=== PATIENT | female | born 1985 | race African-American/Black ===

== ENCOUNTER 2016-11-27 17:11 | Emergency (ER) | payer OTHER ==
[2016-11-27 17:25] VITALS: BP 125/82
--- NOTE | 2016-11-27 17:40 | UC ---
Skin Complaint HPI - HPI Summary HPI Summary: She noticed the area four days ago as a small pimple/gifford on her upper, inner thigh. She applied warm compresses and pressed it, with some relief. The area became more swollen and hot. It is painful to sit. She denies any fevers. - History of Current Complaint Chief Complaint: UCSkin Time Seen by Provider: 11/27/16 17:28 Stated Complaint: ABCESS Hx Obtained From: Patient Hx Last Menstrual Period: march 13 Onset/Duration: Gradual Onset, Lasting Days Onset Severity: Mild Current Severity: Moderate Aggravating: Touch Alleviating: Other - Warm compresses Associated Signs & Symptoms: Positive: Tenderness. Negative: Fever, Chills, Cough Related History: Other: - Pimple - Allergy/Home Medications Allergies/Adverse Reactions: Allergies Allergy/AdvReac Type Severity Reaction Status Date / Time Penicillins Allergy Intermediate Hives Verified 04/20/16 08:56 Home Medications: Home Medications Biotin 1 mg PO 11/27/16 [History] Black Seed Oil 1 cap 11/27/16 [History] Cecy Root [Femmenessence Macaharmony] 500 mg PO 11/27/16 [History] Review of Systems Constitutional: Negative Skin: Other - Tender, firm area in upper, inner thigh Eyes: Negative ENT: Negative Respiratory: Negative Cardiovascular: Negative Gastrointestinal: Negative Genitourinary: Negative Motor: Negative Neurovascular: Negative Musculoskeletal: Negative Neurological: Negative Psychological: Negative All Other Systems Reviewed And Are Negative: Yes PMH/Surg Hx/FS Hx/Imm Hx Previously Healthy: Yes Endocrine History Of: Denies: Diabetes, Thyroid Disease Cardiovascular History Of: Denies: Cardiac Disorders, Hypertension, Pacemaker/ICD Respiratory History Of: Reports: Asthma Denies: COPD GI/ History Of: Denies: Ulcer, Renal Disease Psychological History Of: Reports: Anxiety, Depression - frequent crying Other History Of: Anticoagulant Therapy - usp use - Surgical History Surgical History: Yes Surgery Procedure, Year, and Place: - 2006 - Family History Known Family History: Positive: None Negative: Respiratory Disease Family History: R & n/C - Social History Alcohol Use: Weekly Alcohol Amount: On weekends Substance Use Type: None Smoking Status (MU): Current Some Day Smoker When Did the Patient Quit Smoking/Using Tobacco: " a long time ago" Physical Exam Triage Information Reviewed: Yes Appearance: Well-Appearing, No Pain Distress, Well-Nourished Vital Signs: Initial Vital Signs Temp 98.3 F 11/27/16 17:21 Pulse 109 11/27/16 17:21 Resp 18 11/27/16 17:21 BP 125/82 11/27/16 17:21 Pulse Ox 97 11/27/16 17:21 Vital Signs Reviewed: Yes Eye Exam: Normal Eyes: Positive: Conjunctiva Clear ENT Exam: Normal ENT: Positive: Normal ENT inspection, Pharynx normal, TMs normal. Negative: Tonsillar swelling, Tonsillar exudate Neck exam: Normal Neck: Positive: Supple, Nontender, No Lymphadenopathy Respiratory Exam: Normal Respiratory: Positive: Chest non-tender, Lungs clear, Normal breath sounds, No respiratory distress, No accessory muscle use Cardiovascular Exam: Normal Cardiovascular: Positive: RRR, No Murmur Musculoskeletal Exam: Normal Musculoskeletal: Positive: Strength Intact Neurological Exam: Normal Neurological: Positive: Alert, Muscle Tone Normal Psychological Exam: Normal Skin Exam: Other Skin: Positive: significant lesion(s) - Firm 0.5 inch round abscess in upper, inner left thigh. Tender to palpation and warm to touch. Course/Dx - Course Course Of Treatment: Abscess was incised and drained. We will prescribe her an antibiotic. She is to see her primary care provider on Tuesday to check her INR. She is to use warm compresses to encourage drainage and dress the area loosely if needed. - Differential Diagnoses - Skin Complaint Differential Diagnoses: Abscess, Cellulitis, Contact Dermatitis - Diagnoses Provider Diagnoses: L thigh abscess incision and drainage Procedures - Incision and Drainage Site: L upper thigh Anesthesia: Local - 2mL 2% Instrument(s): Scalpel - mod pus return Packing: Other - none Discharge - Discharge Plan Condition: Stable Disposition: HOME Prescriptions: DOXYcycline CAP(*) [DOXYcycline 100MG CAP(*)] 100 mg PO BID #10 cap Patient Education Materials: Abscess (ED) Print Language: PASHTO Referrals: Lazara Nugent MD [Primary Care Provider] - Additional Instructions: This is most likely an abscess. We would like you to take the antibiotic for its full course. Continue to use warm compresses or soaks in the bath. We want this to continue to drain so please use a loose dressing if needed. If it does not improve in the next couple of days, or symptoms worsen, please come back to be seen. See your primary care provider to re-check your INR on Tuesday.
[2016-11-27] MEDS ORDERED: Lidocaine 2% PF * 5 ML VIAL ONE (17:41)
== END 2016-11-27 18:18 | disposition home or self-care (01) ==
LOC: UCEAST 17:11
DX: L02.416 Cutaneous abscess of left lower limb (principal); Z88.0 Allergy status to penicillin; Z72.0 Tobacco use
CPT/HCPCS: 10060; 87070; 87077; 87186; 87205; 87640; 87641; 99212; G0463

== ENCOUNTER 2017-02-01 09:39 | Emergency (ER) | payer OTHER ==
[2017-02-01 11:28] LABS: Hematocrit 40 % (35-47); Hemoglobin 12.8 g/dl (12.0-16.0); Mean Corpuscular HGB Conc 32 g/dl (31-36); Mean Corpuscular Hemoglobin 28 pg (27-31); Mean Corpuscular Volume 86 fL (80-97); Mean Platelet Volume 8 um3 (7.4-10.4); Red Blood Count 4.61 10^6/ul (4.0-5.4); Red Cell Distribution Width 14 % (10.5-15); White Blood Count 5.4 10^3/ul (3.5-10.8)
[2017-02-01 11:42] LABS: Urine Bilirubin Negative (Negative); Urine Glucose Negative (Negative); Urine Nitrite Negative (Negative)
[2017-02-01 11:44] LABS: ALT 13 U/L (7-52); AST 19 U/L (13-39); Albumin 4.1 g/dL (3.2-5.2); Alkaline Phosphatase 57 U/L (34-104); Anion Gap 5 mmol/L (2-11); BUN/Creatinine Ratio 14.1 (8-20); Blood Urea Nitrogen 9 mg/dL (6-24); C Reactive Protein 1.86 mg/L (< 5.00); CO2 Carbon Dioxide 29 mmol/L (22-32); Calcium 9.3 mg/dL (8.6-10.3); Chloride 103 mmol/L (101-111); EGFR African American 141.1 (>60); EGFR Non-African American 109.7 (>60); Glucose 89 mg/dL (70-100); Indirect Bilirubin 0.3 mg/dL (0.3-1.0); Lipase 15 U/L (11.0-82.0); Potassium 3.9 mmol/L (3.5-5.0); Sodium 137 mmol/L (133-145); Total Protein 7.1 g/dL (6.4-8.9)
--- NOTE | 2017-02-01 12:51 | RAD ---
INDICATION: Back and left lower quadrant abdominal pain. COMPARISON: Comparison is made with a prior CT of the abdomen and pelvis from April 18, 2009. TECHNIQUE: A CT scan of the abdomen and pelvis was performed without intravenous or oral contrast. Contiguous axial sections were obtained from the lung bases through the symphysis pubis. Images were reconstructed in the coronal and sagittal planes. FINDINGS: The lung bases are clear. No pleural effusion is present. The liver and spleen are within normal limits in size without significant focal abnormality on this noncontrast study. No calcified gallstones are seen. The pancreas appears to be within normal limits in size. No ureteral or bladder calculi are seen. The adrenal glands and kidneys are normal in size. No renal calculi or hydronephrosis is seen. The aorta is normal in caliber without significant calcific plaque. No significant enlarged retroperitoneal lymph nodes are seen. The stomach, small and large bowel appear nondistended. The appendix is within normal limits. There are scattered diverticuli within the colon. There is no evidence for diverticulitis or colitis. The uterus is mildly enlarged and anteverted in position. No free intraperitoneal air or fluid is seen. No significant focal osseous abnormality is seen. IMPRESSION: NO EVIDENCE FOR ACUTE FINDING OR CAUSE FOR THE PATIENT'S ABDOMINAL PAIN IS SEEN.
[2017-02-01 13:28] VITALS: BP 102/47
--- NOTE | 2017-02-01 16:43 | ED ---
Abdominal Pain/Female - HPI Summary HPI Summary: PATIENT PRESENTS WITH L SIDED ABDOMINAL PAIN X 4 DAYS. THE PAIN IS INTERMITTENT , DULL AND ACHY IN NATURE AND RADIATES TO THE LEFT FLANK. DENIES CONSTIPATION OR DIARRHEA. ENDORSES N/V WITH 1 X EPISODE OR VOMITING. DENIES JUNE, NECK PAIN, CHEST PAIN OR PRESSURE OR SOB. SHE DENIES RECENT ILLNESS. SURGICAL HISTORY INCLUDES . - History of Current Complaint Chief Complaint: EDAbdPain Stated Complaint: LT SIDE FLANK PAIN/NAUSEA Time Seen by Provider: 02/01/17 09:52 Hx Last Menstrual Period: march 13 Pain Intensity: 0 Pain Scale Used: 0-10 Numeric Allergies/Adverse Reactions: Allergies Allergy/AdvReac Type Severity Reaction Status Date / Time Penicillins Allergy Intermediate Hives Verified 02/01/17 11:02 PMH/Surg Hx/FS Hx/Imm Hx Endocrine/Hematology History: Reports: Hx Anticoagulant Therapy - care home use Denies: Hx Diabetes, Hx Thyroid Disease Cardiovascular History: Reports: Other Cardiovascular Problems/Disorders - HEART MURMUR Denies: Hx Hypertension, Hx Pacemaker/ICD Respiratory History: Reports: Hx Asthma, Other Respiratory Problems/Disorders - allergic rhinitis, smoker Denies: Hx Chronic Obstructive Pulmonary Disease (COPD) GI History: Denies: Hx Ulcer History: Denies: Hx Renal Disease Musculoskeletal History: Reports: Other Musculoskeletal History - 2006 (left) leg DVT Sensory History: Reports: Hx Hearing Problem - (left) ear Denies: Hx Hearing Aid Neurological History: Reports: 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 Psychiatric History: Reports: Hx Anxiety, Hx Depression - frequent crying, Hx Panic Disorder - PANIC ATTACKS-ANXIETY, Other Psychiatric Issues/Disorders - ETOH hx (3 mixed drinks per day) - Cancer History Cancer Type, Location and Year: blood clots - Surgical History Surgery Procedure, Year, and Place: - 2006 - Immunization History Date of Tetanus Vaccine: unk Infectious Disease History: No Infectious Disease History: Denies: Hx Clostridium Difficile, Hx Hepatitis, Hx Human Immunodeficiency Virus (HIV), Hx of Known/Suspected MRSA, Hx Shingles, Hx Tuberculosis, Traveled Outside the [place] in Last 30 Days - Family History Known Family History: Positive: None Negative: Respiratory Disease Family History: R & n/C - Social History Alcohol Use: Weekly Alcohol Amount: On weekends Hx Substance Use: No Substance Use Type: Reports: None Hx Tobacco Use: Yes Smoking Status (MU): Current Some Day Smoker Physical Exam Vital Signs On Initial Exam: Initial Vitals Temp Pulse Resp BP Pulse Ox 97.8 F 79 17 105/65 100 02/01/17 09:41 02/01/17 09:41 02/01/17 09:41 02/01/17 09:41 02/01/17 09:41 - [place] Coma Scale Coma Scale Total: 15 Diagnostics - Vital Signs Vital Signs Temp Pulse Resp BP Pulse Ox 02/01/17 13:27 97.7 F 66 18 102/47 02/01/17 12:37 98 F 68 17 100/48 100 02/01/17 10:42 98.5 F 61 16 113/41 98 02/01/17 09:41 97.8 F 79 17 105/65 100 - Laboratory Lab Results: Lab Results 02/01/17 02/01/17 02/01/17 Range/Units 10:50 11:10 11:10 WBC 5.4 (3.5-10.8) 10^3/ul RBC 4.61 (4.0-5.4) 10^6/ul Hgb 12.8 (12.0-16.0) g/dl Hct 40 (35-47) % MCV 86 (80-97) fL MCH 28 (27-31) pg MCHC 32 (31-36) g/dl RDW 14 (10.5-15) % Plt Count 315 (150-450) 10^3/ul MPV 8 (7.4-10.4) um3 Neut % (Auto) 60.5 (38-83) % Lymph % (Auto) 29.2 (25-47) % [place] % (Auto) 8.0 (1-9) % Eos % (Auto) 1.9 (0-6) % Baso % (Auto) 0.4 (0-2) % Absolute Neuts (auto) 3.3 (1.5-7.7) 10^3/ul Absolute Lymphs (auto) 1.6 (1.0-4.8) 10^3/ul Absolute Monos (auto) 0.4 (0-0.8) 10^3/ul Absolute Eos (auto) 0.1 (0-0.6) 10^3/ul Absolute Basos (auto) 0 (0-0.2) 10^3/ul Absolute Nucleated RBC 0 10^3/ul Nucleated RBC % 0 Sodium 137 (133-145) mmol/L Potassium 3.9 (3.5-5.0) mmol/L Chloride 103 (101-111) mmol/L Carbon Dioxide 29 (22-32) mmol/L Anion Gap 5 (2-11) mmol/L BUN 9 (6-24) mg/dL Creatinine 0.64 (0.51-0.95) mg/dL Est GFR ( Amer) 141.1 (>60) Est GFR (Non-Af Amer) 109.7 (>60) BUN/Creatinine Ratio 14.1 (8-20) Glucose 89 (70-100) mg/dL Calcium 9.3 (8.6-10.3) mg/dL Total Bilirubin 0.40 (0.2-1.0) mg/dL Direct Bilirubin 0.10 (0.03-0.18) mg/dL Indirect Bilirubin 0.3 (0.3-1.0) mg/dL AST 19 (13-39) U/L ALT 13 (7-52) U/L Alkaline Phosphatase 57 (34-104) U/L C-Reactive Protein 1.86 (< 5.00) mg/L Total Protein 7.1 (6.4-8.9) g/dL Albumin 4.1 (3.2-5.2) g/dL Globulin 3.0 (2-4) g/dL Albumin/Globulin Ratio 1.4 (1-3) Lipase 15 (11.0-82.0) U/L Beta HCG, Quant < 0.60 mIU/mL Urine Color Yellow Urine Appearance Clear Urine pH 8.0 (5-9) Ur Specific [place] 1.018 (1.010-1.030) Urine Protein Negative (Negative) Urine Ketones Negative (Negative) Urine Blood Negative (Negative) Urine Nitrate Negative (Negative) Urine Bilirubin Negative (Negative) Urine Urobilinogen Negative (Negative) Ur Leukocyte Esterase Negative (Negative) Urine Glucose Negative (Negative) Result Diagrams: 02/01/17 11:10 02/01/17 11:10 Lab Statement: Any lab studies that have been ordered have been reviewed, and results considered in the medical decision making process. Discharge - Discharge Plan Condition: Stable Disposition: HOME Patient Education Materials: Acute Abdominal Pain (ED) Referrals: Lazara Nugent MD [Primary Care Provider] - Additional Instructions: FOLLOW UP WITH PCP NOTHING FOUND ON CT ABD/PELVIS PLEASE FOLLOW UP FOR US OF THE ABDOMEN YOUR PCP SCHEDULED. MOTRIN FOR DISCOMFORT
[2017-02-01 20:13] LABS: Cholesterol 167 mg/dL; HDL Cholesterol 67.3 mg/dL; LDL Cholesterol 85 mg/dL; Triglycerides 75 mg/dL
[2017-02-01 20:21] LABS: TSH (Thyroid Stimulating Horm) 0.92 mcIU/mL (0.34-5.60)
[2017-02-03 16:28] LABS: DHEA Sulfate 261 mcg/dL (44-332)
== END 2017-02-01 13:27 | disposition home or self-care (01) ==
LOC: ED 09:39
DX: R10.84 Generalized abdominal pain (principal); Z72.0 Tobacco use
CPT/HCPCS: 36415; 74176; 80053; 80061; 81003; 82248; 82533; 82626; 82627; 82652; 83690; 84403; 84443; 84702; 85025; 86140; 99282

== ENCOUNTER 2017-04-08 10:40 | Emergency (ER) | payer OTHER ==
--- NOTE | 2017-04-08 11:26 | ED ---
Shortness of Breath - HPI Summary HPI Summary: 31 female presents with complaints of having an episode of SOB and chest tightness/pressure that lasted ~5-10 minutes. Patient feel light headed at this time as well. Symptoms have improved since. States she was late to work due to her taxi and then when she got to work experienced this episode. States she also had a bout of nausea but no vomiting. Denies cough, SOB, difficulty breathing, chest pain and fever/chills at this time. Denies diaphoresis. PMHx is significant for multiple blood clots which she is concerned for over the past 10 years, 1 in lung, 1 in calf and 1 in brain. Denies any other PMHx no medication use. States laying down made the SOB worse. No recent bed rest or travel. Does not take OCP any longer. Cigarette use 1-2 times a month. Denied numbness tingling. - History of Current Complaint Chief Complaint: EDShortnessOfBreath Time Seen by Provider: 04/08/17 10:54 Hx Obtained From: Patient Onset/Duration: Sudden Onset, Lasting Minutes Timing: Constant Current Severity: Mild Dyspnea At: Rest Aggrevating Factors: Recumbent Position Alleviating Factors: Upright Position, Spontaneous Resolution Associated Signs & Symptoms: Negative - Risk Factors Pulmonary Embolism: Previous PE - Allergy/Home Medications Allergies/Adverse Reactions: Allergies Allergy/AdvReac Type Severity Reaction Status Date / Time Penicillins Allergy Intermediate Hives Verified 02/01/17 11:02 PMH/Surg Hx/FS Hx/Imm Hx Endocrine/Hematology History: Reports: 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 Denies: Hx Diabetes, Hx Thyroid Disease Cardiovascular History: Reports: Hx Deep Vein Thrombosis, Hx Embolism, Other Cardiovascular Problems/Disorders - HEART MURMUR Denies: Hx Hypertension, Hx Pacemaker/ICD Respiratory History: Reports: Hx Asthma, Other Respiratory Problems/Disorders - allergic rhinitis, smoker Denies: Hx Chronic Obstructive Pulmonary Disease (COPD) GI History: Denies: Hx Ulcer History: Denies: Hx Renal Disease Musculoskeletal History: Reports: Other Musculoskeletal History - 2006 (left) leg DVT Sensory History: Reports: Hx Hearing Problem - (left) ear Denies: Hx Hearing Aid Neurological History: Reports: Other Neuro Impairments/Disorders - 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 Psychiatric History: Reports: Hx Anxiety, Hx Depression - frequent crying, Hx Panic Disorder - PANIC ATTACKS-ANXIETY, Other Psychiatric Issues/Disorders - ETOH hx (3 mixed drinks per day) - Cancer History Cancer Type, Location and Year: blood clots - Surgical History Surgery Procedure, Year, and Place: - 2006 - Immunization History Date of Tetanus Vaccine: UTD Date of Influenza Vaccine: NO Immunizations Up to Date: Yes Infectious Disease History: No Infectious Disease History: Denies: Hx Clostridium Difficile, Hx Hepatitis, Hx Human Immunodeficiency Virus (HIV), Hx of Known/Suspected MRSA, Hx Shingles, Hx Tuberculosis, Traveled Outside the [place] in Last 30 Days - Family History Known Family History: Positive: Diabetes, Other - epilepsy Negative: Respiratory Disease Family History: R & n/C - Social History Alcohol Use: Weekly Alcohol Amount: On weekends Hx Substance Use: No Substance Use Type: Reports: None Hx Tobacco Use: Yes Smoking Status (MU): Current Some Day Smoker Review of Systems Constitutional: Negative Cardiovascular: Negative Positive: Shortness Of Breath - chest tightness/ pressure Gastrointestinal: Negative Musculoskeletal: Negative Skin: Negative Neurological: Negative All Other Systems Reviewed And Are Negative: Yes Physical Exam Triage Information Reviewed: Yes Vital Signs On Initial Exam: Initial Vitals Temp Pulse Resp BP Pulse Ox 97.1 F 57 16 121/78 98 04/08/17 10:56 04/08/17 10:56 04/08/17 10:56 04/08/17 10:56 04/08/17 10:56 Vital Signs Reviewed: Yes Appearance: Positive: Well-Appearing, No Pain Distress, Well-Nourished - laying comfortably in strecher Skin: Positive: Warm, Skin Color Reflects Adequate Perfusion - <2 sec cap refill b/l, Dry. Negative: Cold, Numb, Cyanosis @, Diaphoretic, Pale Eyes: Positive: Normal, Conjunctiva Clear ENT: Positive: Normal ENT inspection, Hearing grossly normal, Pharynx normal, TMs normal. Negative: Trismus, Muffled/hoarse voice Dental: Negative: Cervical Lymphadenopathy Neck: Positive: Supple, Nontender, No Lymphadenopathy Respiratory/Lung Sounds: Positive: Clear to Auscultation, Breath Sounds Present. Negative: Rales, Rhonchi, Wheezes Cardiovascular: Positive: Normal, RRR, Pulses are Symmetrical in both Upper and Lower Extremities, Murmur - chronic. Negative: Rub, Leg Edema Left, Leg Edema Right Abdomen Description: Positive: Nontender, No Organomegaly, Soft Bowel Sounds: Positive: Present Musculoskeletal: Positive: Normal, Strength/ROM Intact Neurological: Positive: Normal, Sensory/Motor Intact, Alert, Oriented to Person Place, Time, CN Intact II-III Psychiatric: Positive: Affect/Mood Appropriate - [place] Coma Scale Best Eye Response: 4 - Spontaneous Best Motor Response: 6 - Obeys Commands Best Verbal Response: 5 - Oriented Coma Scale Total: 15 Diagnostics - Vital Signs Vital Signs Temp Pulse Resp BP Pulse Ox 04/08/17 10:56 97.1 F 57 16 121/78 98 - Laboratory Result Diagrams: 04/08/17 11:53 04/08/17 11:53 Lab Statement: Any lab studies that have been ordered have been reviewed, and results considered in the medical decision making process. - Radiology chest Xray Interpretation: No Acute Changes - NO ACTIVE DISEASE. Radiology Interpretation Completed By: Radiologist - EKG EKG Cardiac Rate: NL EKG Rhythm: Sinus Rhythm ST Segment: Normal EKG Interpretation: NSR EKG Comparison: No Significant Change Course/Dx - Course Course Of Treatment: not in an pain at this time and denies SOB. labs and chest x-ray/eKG ordered. All unremarkable. D Dimer negative. Appears patient may have suffered a panic attack. Symptoms resolved spontaneously and normal labs. Will be d/c. No concern for other serious/emergent etiology such as PE, pneumonia or ACS due to PE findings, HPI and vitals. Patient was feeling better and wanted to be d/c home. Aware of worsening signs and symptoms to watch out for. Return if persist or recur. Follow up PCP. - Diagnoses Differential Diagnosis/HQI/PQRI: Positive: Asthma, Bronchitis, [place], Pneumonia, Pneumothorax, Pulmonary Embolism, Other - URI, anxiety, panic attack Provider Diagnoses: SOB (shortness of breath), Anxiety Discharge - Discharge Plan Condition: Stable Disposition: HOME Patient Education Materials: Dyspnea (ED), Anxiety (GEN), Panic Attack (GEN) Referrals: Lazara Nugent MD [Primary Care Provider] - Additional Instructions: Rest and drink plenty of fluids. If symptoms return or worsen please seek medical attention promptly. Follow up with PCP.
[2017-04-08 12:08] LABS: UR Preg Internal Control QC Line Present; Urine Bilirubin Negative (Negative); Urine Glucose Negative (Negative); Urine Nitrite Negative (Negative)
[2017-04-08 12:09] LABS: Hematocrit 38 % (35-47); Hemoglobin 12.2 g/dl (12.0-16.0); Mean Corpuscular HGB Conc 32 g/dl (31-36); Mean Corpuscular Hemoglobin 29 pg (27-31); Mean Corpuscular Volume 89 fL (80-97); Mean Platelet Volume 9 um3 (7.4-10.4); Red Blood Count 4.29 10^6/ul (4.0-5.4); Red Cell Distribution Width 14 % (10.5-15); White Blood Count 4.9 10^3/ul (3.5-10.8)
[2017-04-08 12:09] LABS: Manual Entry Verification JEA0012
[2017-04-08 12:26] LABS: Albumin 3.8 g/dL (3.2-5.2); BUN/Creatinine Ratio 14.8 (8-20); Calcium 9.2 mg/dL (8.6-10.3); EGFR African American 171.7 (>60); EGFR Non-African American 133.5 (>60); Globulin 2.8 g/dL (2-4); Potassium 3.8 mmol/L (3.5-5.0); Total Bilirubin 0.4 mg/dL (0.2-1.0); Total Protein 6.6 g/dL (6.4-8.9)
--- NOTE | 2017-04-08 12:47 | RAD ---
INDICATION: Short of breath. Chest pressure COMPARISON: September 13, 2016 TECHNIQUE: PA and lateral dual-energy views were obtained. FINDINGS: Bones/Soft Tissues: There are no acute bony findings. There is a mild scoliosis Cardiomediastinal: The cardiomediastinal silhouette is normal. Lungs: There are no infiltrates. Pleura: There are no pleural effusions. Other: None IMPRESSION: NO ACTIVE DISEASE.
[2017-04-08 12:58] LABS: T4 5.83 mcg/mL (6.09-12.23)
[2017-04-08 13:00] LABS: TSH (Thyroid Stimulating Horm) 0.8 mcIU/mL (0.34-5.60)
[2017-04-08 15:00] VITALS: BP 124/76
== END 2017-04-08 14:09 | disposition home or self-care (01) ==
LOC: ED 10:40
DX: R06.02 Shortness of breath (principal); Z72.0 Tobacco use; F41.9 Anxiety disorder, unspecified
CPT/HCPCS: 36415; 71020; 80053; 81003; 81025; 83605; 84436; 84443; 84484; 85025; 85379; 99283

== ENCOUNTER 2017-08-01 09:57 | Emergency (ER) | payer OTHER ==
--- NOTE | 2017-08-01 11:30 | ED ---
Throat Pain/Nasal Congestion - HPI Summary HPI Summary: 32 female presents to ED with complaints of dental pain x3 days. Patient states she fractured a tooth upper right a few months ago. Patient states pain is on right upper and lower side/mandible area. Denies fever/chills, discharge, obvious swelling, trouble breathing and difficulty swallowing. Does have pain with chewing. Admits to dental caries. No recent trauma or injury. No other complaints. Has been taking Aleve with relief only lasting a few hours. Does not have a dentist, but is working on getting one. Pain was keeping her up throughout the night. 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 , however not currently taking as of 08/01/17 Denies: Hx Diabetes, Hx Thyroid Disease Cardiovascular History: Reports: Hx Deep Vein Thrombosis, Hx Embolism, Other Cardiovascular Problems/Disorders - HEART MURMUR Denies: Hx Hypertension, Hx Pacemaker/ICD Respiratory History: Reports: Hx Asthma, Other Respiratory Problems/Disorders - allergic rhinitis, smoker Denies: Hx Chronic Obstructive Pulmonary Disease (COPD) GI History: Denies: Hx Ulcer History: Denies: Hx Renal Disease Musculoskeletal History: Reports: Other Musculoskeletal History - 2006 (left) leg DVT Sensory History: Reports: Hx Hearing Problem - (left) ear Denies: Hx Hearing Aid Neurological History: Reports: 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 Psychiatric History: Reports: Hx Anxiety, Hx Depression - frequent crying, Hx Panic Disorder - PANIC ATTACKS-ANXIETY, Other Psychiatric Issues/Disorders - ETOH hx (3 mixed drinks per day) - Cancer History Cancer Type, Location and Year: blood clots - Surgical History Surgery Procedure, Year, and Place: - 2006 - Immunization History Date of Tetanus Vaccine: UTD Date of Influenza Vaccine: NO Infectious Disease History: No Infectious Disease History: Denies: Hx Clostridium Difficile, Hx Hepatitis, Hx Human Immunodeficiency Virus (HIV), Hx of Known/Suspected MRSA, Hx Shingles, Hx Tuberculosis, Traveled Outside the [place] in Last 30 Days - Family History Known Family History: Positive: None, Diabetes, Other - epilepsy Negative: Respiratory Disease Family History: R & n/C - Social History Alcohol Use: Weekly Alcohol Amount: On weekends Hx Substance Use: No Substance Use Type: Reports: None Hx Tobacco Use: Yes Smoking Status (MU): Current Some Day Smoker Review of Systems Constitutional: Negative Positive: Dental Pain Cardiovascular: Negative Respiratory: Negative Gastrointestinal: Negative All Other Systems Reviewed And Are Negative: Yes Physical Exam Triage Information Reviewed: Yes Vital Signs On Initial Exam: Initial Vitals Temp Pulse Resp BP Pulse Ox 97.3 F 70 16 118/65 99 08/01/17 10:03 08/01/17 10:03 08/01/17 10:03 08/01/17 10:03 08/01/17 10:03 Vital Signs Reviewed: Yes Appearance: Positive: Well-Appearing, No Pain Distress, Well-Nourished Skin: Positive: Warm, Skin Color Reflects Adequate Perfusion, Dry. Negative: Cold, Numb, Cyanosis @, Pale, Erythema @ Head/Face: Positive: Normal Head/Face Inspection - no swelling noted Eyes: Positive: Normal ENT: Positive: Normal ENT inspection, Hearing grossly normal Dental: Positive: Gross Decay/Caries @, Dental Fracture @, Abscess @ - non palpable, Other - tender on palpation of left mandible area and left maxillary area. Negative: Percussion Tenderness @, Cervical Lymphadenopathy Neck: Positive: Supple, Nontender, No Lymphadenopathy - restricted due to excess adipose tissue Respiratory/Lung Sounds: Positive: Clear to Auscultation, Breath Sounds Present. Negative: Rales, Rhonchi, Wheezes Cardiovascular: Positive: Normal, RRR, Pulses are Symmetrical in both Upper and Lower Extremities. Negative: Murmur, Rub Musculoskeletal: Positive: Normal Neurological: Positive: Normal, Sensory/Motor Intact, Alert, Oriented to Person Place, Time Diagnostics - Vital Signs Vital Signs Temp Pulse Resp BP Pulse Ox 08/01/17 10:03 97.3 F 70 16 118/65 99 - Laboratory Lab Statement: Any lab studies that have been ordered have been reviewed, and results considered in the medical decision making process. EENT Course/Dx - Course Course Of Treatment: appears to be suffering from dental infection/abscess. no concerning other signs/symptoms. nomral PE other than dental fracture/caries. will treat with antibiotic, pain management, continue aleve. ice. good oral hygeine and follow up dentist. aware of worsening signs/symptoms. no concern for other emergent etiology at this time. - Differential Diagnoses Differential Diagnoses: Dental Abscess, Dental Caries, Fractured Tooth, Sinusitis - Diagnoses Provider Diagnoses: Dental infection, Pain, dental Discharge - Discharge Plan Condition: Stable Disposition: HOME Prescriptions: Clindamycin Cap(NF) [Clindamycin Cap 300 mg Cap(NF)] 300 mg PO QID #28 cap HYDROcodone/ACETAMIN 5-325 MG* [[place] 5-325 TAB*] 1 tab PO Q6H PRN #15 tab MDD 2 PRN Reason: Pain Patient Education Materials: Dental Abscess (ED), Toothache (ED) Referrals: Kalpana HONG,Jeffrey Viera [Doctor of Dental Medicine] - [facility] [Outside] Additional Instructions: Take prescribed medication as directed to help with pain and to fight infection. Highly recommend taking probiotic pill and/or eating latvian yogurt daily to replenish normal jonathon, in between antibiotic doses. Follow up with dentist, call to make an appointment. Ice swelling 20 minutes on and 20 minutes off. Drink plenty of fluids. Keep good oral hygiene. Any new or worsening symptoms please seek medical attention promptly, as discussed.
[2017-08-01 11:38] VITALS: BP 108/85
== END 2017-08-01 11:37 | disposition home or self-care (01) ==
LOC: ED 09:57
DX: K08.89 Other specified disorders of teeth and supporting structures (principal); K04.7 Periapical abscess without sinus; Z72.0 Tobacco use
CPT/HCPCS: 99282

== ENCOUNTER 2017-10-24 16:49 | Emergency (ER) | payer OTHER ==
[2017-10-24 18:46] LABS: ABS Basophils 0 10^3/ul (0-0.2); ABS Eosinophils 0.2 10^3/ul (0-0.6); ABS Lymphocytes 1.9 10^3/ul (1.0-4.8); ABS Monocytes 0.5 10^3/ul (0-0.8); ABS Neutrophils 3.8 10^3/ul (1.5-7.7); ABS Nucleated RBC 0 10^3/ul; Eosinophil % 2.7 % (0-6); Hematocrit 36 % (35-47); Lymphocyte % 30.4 % (25-47); Mean Corpuscular HGB Conc 33 g/dl (31-36); Mean Corpuscular Hemoglobin 29 pg (27-31); Mean Corpuscular Volume 87 fL (80-97); Mean Platelet Volume 8 um3 (7.4-10.4); Nucleated Red Blood Cells % 0; Platelet Count 292 10^3/ul (150-450); Red Blood Count 4.19 10^6/ul (4.0-5.4); Red Cell Distribution Width 14 % (10.5-15); White Blood Count 6.4 10^3/ul (3.5-10.8)
[2017-10-24 19:01] LABS: EGFR Non-African American 89.4 (>60)
--- NOTE | 2017-10-24 19:37 | ED ---
GI/ HPI - HPI Summary HPI Summary: 32-year-old female presents with left side abdominal pain for the past 4 days. She states the pain is mostly on her left side and sometimes radiates to her left flank and down to her left lower quadrant. She has never had this pain before. She denies a history of ovarian cysts. She denies any history of kidney stones. She denies any frequency urgency dysuria or hematuria. She states her pain is kind of intermittent. She denies any fever. She denies any nausea or vomiting or diarrhea. She denies any previous abdominal surgeries. Nothing makes it better or worse. Denies any chest pain or shortness breath. She is not on control. She does have a history of blood clot. She denies any recent vaginal discharge or STD. 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 as of 08/01/17 Denies: Hx Diabetes, Hx Thyroid Disease Cardiovascular History: Reports: Hx Deep Vein Thrombosis, Hx Embolism, Other Cardiovascular Problems/Disorders - HEART MURMUR Denies: Hx Hypertension, Hx Pacemaker/ICD Respiratory History: Reports: Hx Asthma, Other Respiratory Problems/Disorders - allergic rhinitis, smoker Denies: Hx Chronic Obstructive Pulmonary Disease (COPD) GI History: Denies: Hx Ulcer History: Denies: Hx Renal Disease Musculoskeletal History: Reports: Other Musculoskeletal History - 2006 (left) leg DVT Sensory History: Reports: Hx Hearing Problem - (left) ear Denies: Hx Hearing Aid Neurological History: Reports: 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 Psychiatric History: Reports: Hx Anxiety, Hx Depression - frequent crying, Hx Panic Disorder - PANIC ATTACKS-ANXIETY, Other Psychiatric Issues/Disorders - ETOH hx (3 mixed drinks per day) - Cancer History Cancer Type, Location and Year: blood clots - Surgical History Surgery Procedure, Year, and Place: - 2006 - Immunization History Date of Tetanus Vaccine: UTD Date of Influenza Vaccine: NO Infectious Disease History: No Infectious Disease History: Denies: Hx Clostridium Difficile, Hx Hepatitis, Hx Human Immunodeficiency Virus (HIV), Hx of Known/Suspected MRSA, Hx Shingles, Hx Tuberculosis, Traveled Outside the [place] in Last 30 Days - Family History Known Family History: Positive: None, Diabetes, Other - epilepsy Negative: Respiratory Disease Family History: R & n/C - Social History Alcohol Use: Weekly Alcohol Amount: On weekends Hx Substance Use: No Substance Use Type: Reports: None Hx Tobacco Use: Yes Smoking Status (MU): Current Some Day Smoker Review of Systems Negative: Fever Negative: Chest Pain Negative: Shortness Of Breath Positive: Abdominal Pain. Negative: Vomiting, Diarrhea, Nausea Positive: flank pain All Other Systems Reviewed And Are Negative: Yes Physical Exam Triage Information Reviewed: Yes Vital Signs On Initial Exam: Initial Vitals Temp Pulse Resp BP Pulse Ox 98.9 F 62 18 104/66 99 10/24/17 16:57 10/24/17 16:57 10/24/17 16:57 10/24/17 16:57 10/24/17 16:57 Vital Signs Reviewed: Yes Appearance: Positive: Well-Appearing Skin: Positive: Warm, Dry Head/Face: Positive: Normal Head/Face Inspection Eyes: Positive: Normal, Conjunctiva Clear Respiratory/Lung Sounds: Positive: Clear to Auscultation, Breath Sounds Present Cardiovascular: Positive: Normal, RRR Abdomen Description: Positive: Soft, Other: - tenderness in LLQ. Negative: CVA Tenderness (L) Bowel Sounds: Positive: Present Musculoskeletal: Positive: Normal Neurological: Positive: Normal Psychiatric: Positive: Normal Diagnostics - Vital Signs Vital Signs Temp Pulse Resp BP Pulse Ox 10/24/17 18:54 98.8 F 68 18 121/57 100 10/24/17 16:57 98.9 F 62 18 104/66 99 - Laboratory Lab Results: Lab Results 10/24/17 10/24/17 Range/Units 18:37 18:37 WBC 6.4 (3.5-10.8) 10^3/ul RBC 4.19 (4.0-5.4) 10^6/ul Hgb 12.0 (12.0-16.0) g/dl Hct 36 (35-47) % MCV 87 (80-97) fL MCH 29 (27-31) pg MCHC 33 (31-36) g/dl RDW 14 (10.5-15) % Plt Count 292 (150-450) 10^3/ul MPV 8 (7.4-10.4) um3 Neut % (Auto) 59.3 (38-83) % Lymph % (Auto) 30.4 (25-47) % [place] % (Auto) 7.1 (1-9) % Eos % (Auto) 2.7 (0-6) % Baso % (Auto) 0.5 (0-2) % Absolute Neuts (auto) 3.8 (1.5-7.7) 10^3/ul Absolute Lymphs (auto) 1.9 (1.0-4.8) 10^3/ul Absolute Monos (auto) 0.5 (0-0.8) 10^3/ul Absolute Eos (auto) 0.2 (0-0.6) 10^3/ul Absolute Basos (auto) 0 (0-0.2) 10^3/ul Absolute Nucleated RBC 0 10^3/ul Nucleated RBC % 0 Sodium 136 (133-145) mmol/L Potassium 3.6 (3.5-5.0) mmol/L Chloride 104 (101-111) mmol/L Carbon Dioxide 27 (22-32) mmol/L Anion Gap 5 (2-11) mmol/L BUN 15 (6-24) mg/dL Creatinine 0.76 (0.51-0.95) mg/dL Est GFR ( Amer) 114.9 (>60) Est GFR (Non-Af Amer) 89.4 (>60) BUN/Creatinine Ratio 19.7 (8-20) Glucose 88 (70-100) mg/dL Calcium 9.1 (8.6-10.3) mg/dL Total Bilirubin 0.20 (0.2-1.0) mg/dL AST 17 (13-39) U/L ALT 13 (7-52) U/L Alkaline Phosphatase 58 (34-104) U/L C-React Prot High Sens 1.93 mg/L Total Protein 6.8 (6.4-8.9) g/dL Albumin 3.9 (3.2-5.2) g/dL Globulin 2.9 (2-4) g/dL Albumin/Globulin Ratio 1.3 (1-3) Lipase 14 (11.0-82.0) U/L Beta HCG, Quant < 0.60 mIU/mL Result Diagrams: 10/24/17 18:37 10/24/17 18:37 Lab Statement: Any lab studies that have been ordered have been reviewed, and results considered in the medical decision making process. GIGU Course/Dx - Course Course Of Treatment: 32-year-old female presents with left side abdominal pain for the past 4 days. She states the pain is mostly on her left side and sometimes radiates to her left flank and down to her left lower quadrant. She has never had this pain before. She denies a history of ovarian cysts. She denies any history of kidney stones. She denies any frequency urgency dysuria or hematuria. She states her pain is kind of intermittent. She denies any fever. She denies any nausea or vomiting or diarrhea. She denies any previous abdominal surgeries. Nothing makes it better or worse. Denies any chest pain or shortness breath. She is not on control. She does have a history of blood clot. On exam tenderness greatest in left lower quadrant. Negative CVA tenderness. Lab White blood cell count normal. symptoms not conistent with kidney stone so will get transvaginal u/s. urine neg. u/s shows cyst. explained results to patient and patient remembered that had history of cyst. patient understand and agrees with plan. - Diagnoses Differential Diagnoses - Female: Ovarian Cyst, Urinary Tract Infection, Ureteral Calculi Provider Diagnoses: Abdominal pain, Ovarian cyst Discharge - Discharge Plan Condition: Good Disposition: HOME Patient Education Materials: Ovarian Cyst (ED) Referrals: No Primary Care Phys,NOPCP [Primary Care Provider] - Additional Instructions: Take Tylenol or ibuprofen every 6 hours for pain Follow up with obgyn Return to ED if develop any new or worsening symptoms
[2017-10-24 19:50] LABS: Urine Appearance Cloudy; Urine Blood Negative (Negative); Urine Color Yellow; Urine Ketones Negative (Negative); Urine Protein Negative (Negative); Urine Specific Gravity 1.023 (1.010-1.030); Urine Urobilinogen Negative (Negative)
--- NOTE | 2017-10-24 20:31 | RAD ---
HISTORY: Left lower quadrant pain COMPARISONS: March 03, 2017 TECHNIQUE: Multiple transverse and longitudinal ultrasound images were obtained of the pelvis using grayscale, color Doppler, and spectral Doppler imaging using the endovaginal transducer. FINDINGS: UTERUS: The uterus measures 8.8 x 4.1 x 4.7 cm. The uterus is normal in shape, size, contour, and echotexture. Cervical nabothian cysts are noted. ENDOMETRIUM: The endometrial stripe is smooth. The endometrium measures 0.7 cm in thickness. CUL-DE-SAC: There is no free fluid within the cul-de-sac. RIGHT OVARY: The right ovary measures 3.1 x 1.7 x 2.3 cm. Multiple follicles are noted. Normal arterial and venous waveforms are identifiable within the ovary on spectral Doppler imaging. LEFT OVARY: The left ovary measures 3.3 x 2.2 x 3 cm. Multiple follicles are noted, including a 2.3 cm simple cyst. Normal arterial and venous waveforms are identifiable within the ovary on spectral Doppler imaging. BLADDER: The bladder is not well visualized. OTHER: None IMPRESSION: 2.3 CM LEFT OVARIAN SIMPLE CYST. NO SONOGRAPHIC FEATURES OF TORSION. PLEASE NOTE THAT PARTIAL OR INTERMITTENT TORSION MAY BE SONOGRAPHICALLY NORMAL.
[2017-10-24 21:14] VITALS: BP 122/83
== END 2017-10-24 21:12 | disposition home or self-care (01) ==
LOC: ED 16:49
DX: N83.292 Other ovarian cyst, left side (principal); F17.200 Nicotine dependence, unspecified, uncomplicated; Z88.0 Allergy status to penicillin
CPT/HCPCS: 36415; 76830; 80053; 81003; 83690; 84702; 85025; 86141; 86703; 99282

== ENCOUNTER 2017-12-16 15:13 | Emergency (ER) | payer OTHER ==
[2017-12-16] MEDS ORDERED: Lidocaine 2% VISCOUS* 15 ML UDC SWISH SPIT ONE (16:06)
[2017-12-16] MEDS ORDERED: HYDROcodone/ACETAMIN 5-325 MG* 1 TAB PO ONE (16:11)
--- NOTE | 2017-12-16 16:25 | ED ---
Throat Pain/Nasal Congestion - HPI Summary HPI Summary: Pt here w/ gingival pain in areas of recent extractions (Rt upper and lower posterior teeth) - worse w/ hot/cold. Has foul taste in area at times. Not cleaning after eating despite a hole in lower gingiva and irritation of upper gingiva. Has been trying ibuprofen and acetaminophen w/ brief relief. Was switched to dolobid by dentist today. Denies fever, chills, n/v/d, trouble breathing or swallowing. Painful to eat but still drinking fluids. Was on clindamycin after surgery - completed and still has sx. - History of Current Complaint Chief Complaint: EDDentalPain Time Seen by Provider: 12/16/17 15:35 Hx Obtained From: Patient - Allergies/Home Medications Allergies/Adverse Reactions: Allergies Allergy/AdvReac Type Severity Reaction Status Date / Time Penicillins Allergy Hives Verified 12/16/17 15:28 PMH/Surg Hx/FS Hx/Imm Hx Previously Healthy: Yes Endocrine/Hematology History: Reports: Hx Anticoagulant Therapy - detention use , however not currently taking as of 08/01/17 Denies: Hx Diabetes, Hx Thyroid Disease Cardiovascular History: Reports: Hx Deep Vein Thrombosis, Hx Embolism, Other Cardiovascular Problems/Disorders - HEART MURMUR Denies: Hx Hypertension, Hx Pacemaker/ICD Respiratory History: Reports: Hx Asthma, Other Respiratory Problems/Disorders - allergic rhinitis, smoker Denies: Hx Chronic Obstructive Pulmonary Disease (COPD) GI History: Denies: Hx Ulcer History: Denies: Hx Renal Disease Musculoskeletal History: Reports: Other Musculoskeletal History - 2006 (left) leg DVT Sensory History: Reports: Hx Hearing Problem - (left) ear Denies: Hx Hearing Aid Neurological History: Reports: 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 Psychiatric History: Reports: Hx Anxiety, Hx Depression - frequent crying, Hx Panic Disorder - PANIC ATTACKS-ANXIETY, Other Psychiatric Issues/Disorders - ETOH hx (3 mixed drinks per day) - Cancer History Cancer Type, Location and Year: blood clots - Surgical History Surgery Procedure, Year, and Place: - 2006 - Immunization History Date of Tetanus Vaccine: UTD Date of Influenza Vaccine: NO Infectious Disease History: No Infectious Disease History: Denies: Hx Clostridium Difficile, Hx Hepatitis, Hx Human Immunodeficiency Virus (HIV), Hx of Known/Suspected MRSA, Hx Shingles, Hx Tuberculosis, Traveled Outside the [place] in Last 30 Days - Family History Known Family History: Positive: Diabetes Negative: Respiratory Disease - Social History Lives: With Family Alcohol Use: Weekly Alcohol Amount: On weekends Hx Substance Use: No Substance Use Type: Reports: None Hx Tobacco Use: Yes Smoking Status (MU): Current Some Day Smoker Review of Systems Constitutional: Negative Negative: Fever, Chills, Fatigue Eyes: Negative Negative: Photophobia, Blurred Vision, Diplopia, Drainage, Erythema Positive: Dental Pain. Negative: Epistaxis, Sore Throat, Ear Ache, Nasal Discharge Cardiovascular: Negative Respiratory: Negative Gastrointestinal: Negative Positive: no symptoms reported Musculoskeletal: Negative Skin: Negative Neurological: Negative Psychological: Normal All Other Systems Reviewed And Are Negative: Yes Physical Exam Triage Information Reviewed: Yes Vital Signs On Initial Exam: Initial Vitals Temp Pulse Resp BP Pulse Ox 98.3 F 64 18 128/96 98 12/16/17 15:19 12/16/17 15:19 12/16/17 15:19 12/16/17 15:19 12/16/17 15:19 Vital Signs Reviewed: Yes Appearance: Positive: Well-Appearing, Well-Nourished, Pain Distress - mild to moderate Skin: Positive: Warm, Skin Color Reflects Adequate Perfusion, Dry - no erythema , edema or ecchymosis about face in area of concern Head/Face: Positive: Normal Head/Face Inspection Eyes: Positive: Normal, EOMI, Conjunctiva Clear. Negative: Conjunctiva Inflammed ENT: Positive: Normal ENT inspection, Hearing grossly normal, Pharynx normal, TMs normal, Uvula midline. Negative: Pharyngeal erythema, Nasal congestion, Nasal drainage, Tonsillar swelling, Tonsillar exudate Dental: Positive: Other - pocket/space in Rt lower posterior gingiva where tooth was - this has food and saliva in it - space is TTP - no purulent drainage ; less of a pocket but has a space along Rt upper posterior jaw where tooth was also extracted- piece of food present - removed and TTP - no purulent drainge here either but w/ irritation Neck: Positive: Supple, Nontender, Enlarged Nodes @ - shoddy CC LN's Rt > Lt Respiratory/Lung Sounds: Positive: Clear to Auscultation, Breath Sounds Present. Negative: Stridor Cardiovascular: Positive: Normal Musculoskeletal: Positive: Normal, Strength/ROM Intact Neurological: Positive: Normal, Sensory/Motor Intact, Alert, Oriented to Person Place, Time, CN Intact II-III Psychiatric: Positive: Normal Diagnostics - Vital Signs Vital Signs Temp Pulse Resp BP Pulse Ox 12/16/17 15:19 98.3 F 64 18 128/96 98 - Laboratory Lab Statement: Any lab studies that have been ordered have been reviewed, and results considered in the medical decision making process. EENT Course/Dx - Course Course Of Treatment: Areas where pt'steeth were extracted are tender. Other than mild irritation, appear to be healing well. Given her lack of oral hygiene after meals and food present in these wounds, recommend saline syringe cleaning after each meal, different anbx to cover anaerobes (pt has amox allergy so used flagyl instead of augmentin), and lidocaine viscous for pain. Pt advised to f/u w/ dentist. Agrees w/ plan. - Diagnoses Provider Diagnoses: Pain following oral surgery Discharge - Sign-Out/Discharge Documenting (check all that apply): Discharge - Discharge Plan Condition: Stable Disposition: HOME Prescriptions: Lidocaine 2% VISCOUS* [Xylocaine 2% Viscous*] 15 ml SWISH SPIT Q4H PRN #1 btl PRN Reason: Pain metroNIDAZOLE [Flagyl 500 MG TAB] 500 mg PO TID #21 tab Patient Education Materials: Acute Dental Trauma (ED) Referrals: Skylar Jiménez MD [Primary Care Provider] - Additional Instructions: Rinse areas with salt water through syringe after each meal/beverage Continue pain medications as directed Use lidocaine mouth rinse as directed for pain Complete new antibiotic as directed Follow-up with dentist in 1 week if symptoms persist *If you develop headache, fever, difficulty breathing or swallowing, return to ED - Billing Disposition and Condition Condition: STABLE Disposition: HOME
[2017-12-16 20:26] VITALS: BP 112/84
== END 2017-12-16 16:30 | disposition home or self-care (01) ==
LOC: ED 15:13
DX: K08.89 Other specified disorders of teeth and supporting structures (principal); Z86.718 Personal history of other venous thrombosis and embolism; Z79.01 Long term (current) use of anticoagulants; Z98.890 Other specified postprocedural states; F17.210 Nicotine dependence, cigarettes, uncomplicated
CPT/HCPCS: 99282

== ENCOUNTER 2018-02-04 20:45 | Emergency (ER) | payer OTHER ==
[2018-02-04 22:58] LABS: ABS Basophils 0 10^3/ul (0-0.2); ABS Eosinophils 0.3 10^3/ul (0-0.6); ABS Lymphocytes 2.8 10^3/ul (1.0-4.8); ABS Monocytes 0.4 10^3/ul (0-0.8); ABS Neutrophils 3.1 10^3/ul (1.5-7.7); ABS Nucleated RBC 0 10^3/ul; Eosinophil % 3.9 % (0-6); Hematocrit 41 % (35-47); Hemoglobin 13.6 g/dl (12.0-16.0); Lymphocyte % 43.1 % (25-47); Mean Corpuscular HGB Conc 34 g/dl (31-36); Mean Corpuscular Hemoglobin 29 pg (27-31); Mean Corpuscular Volume 87 fL (80-97); Nucleated Red Blood Cells % 0.3; Platelet Count 341 10^3/ul (150-450); Red Blood Count 4.65 10^6/ul (4.0-5.4); Red Cell Distribution Width 13 % (10.5-15); White Blood Count 6.5 10^3/ul (3.5-10.8)
[2018-02-04] MEDS ORDERED: Iohexol 300* (CONTRAST) 10 ML SDV IV ONE (23:16)
[2018-02-05 01:33] VITALS: BP 113/62
--- NOTE | 2018-02-05 02:25 | ED ---
Deonte Lundberg Julia, scribed for Rafiq Galicia MD on 02/04/18 at 2147 . Headache - HPI Summary HPI Summary: This patient is a 32 year old F presenting to [facility] accompanied by her son with a chief complaint of a left sided headache and neck pain since 02/02/18. The patient rates the pain 7/10 in severity. Symptoms unchanged by Tylenol and Advil. Patient is concerned for blood clots because current symptoms are similar to previous symptoms that resulted in blood clots. Patient has extensive clotting history beginning roughly 10 years ago with DVT in her lower leg resulting in hospitalization for a week. Her second blood clot, occurring roughly 6 years ago, began with a headache and a seizure the next day resulting in hospitalization for a week. Patient was subsequently placed on Coumadin. Her last clot was in the RUE, and she was subsequently switched to Xarelto. She states that sometimes she will forget to take her medication. She stopped taking her blood thinner few weeks ago for a dental procedure. She began taking her medication again a few days ago. She states her headache began before she started the blood thinners again. PCP is with Kiersten. Patient is also seen by Dr. Bustos. - History Of Current Complaint Chief Complaint: EDHeadache Stated Complaint: HEAD/NECK PAIN Time Seen by Provider: 02/04/18 21:43 Hx Obtained From: Patient Hx Last Menstrual Period: December 19 Onset/Duration: Gradual Onset, Started days ago Currently Pain Is: Current Pain Scale(0-10)= - 7 Timing: Constant Location of Headache: Other: - left, neck Radiates to: neck Allevating Factors: Nothing Associated Signs And Symptoms: Neck Pain Related History: Similar Episode/DX As: - blood clot - Allergies/Home Medications Allergies/Adverse Reactions: Allergies Allergy/AdvReac Type Severity Reaction Status Date / Time Penicillins Allergy Hives Verified 02/04/18 20:57 Home Medications: Home Medications Ibuprofen [Motrin Ib] 200 mg PO Q6H PRN 02/04/18 [History Confirmed 02/04/18] Rivaroxaban TAB(*) [Xarelto 10 mg (*)] 10 mg PO DAILY 02/04/18 [History Confirmed 02/04/18] PMH/Surg Hx/FS Hx/Imm Hx Endocrine/Hematology History: Reports: Hx Anticoagulant Therapy - long-term use , however not currently taking as of 08/01/17 Denies: Hx Diabetes, Hx Thyroid Disease Cardiovascular History: Reports: Hx Deep Vein Thrombosis, Hx Embolism, Other Cardiovascular Problems/Disorders - HEART MURMUR Denies: Hx Hypertension, Hx Pacemaker/ICD Respiratory History: Reports: Hx Asthma, Other Respiratory Problems/Disorders - allergic rhinitis, smoker Denies: Hx Chronic Obstructive Pulmonary Disease (COPD) GI History: Denies: Hx Ulcer History: Denies: Hx Renal Disease Musculoskeletal History: Reports: Other Musculoskeletal History - 2006 (left) leg DVT Sensory History: Reports: Hx Hearing Problem - (left) ear Denies: Hx Hearing Aid Neurological History: Reports: 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 Psychiatric History: Reports: Hx Anxiety, Hx Depression - frequent crying, Hx Panic Disorder - PANIC ATTACKS-ANXIETY, Other Psychiatric Issues/Disorders - ETOH hx (3 mixed drinks per day) - Cancer History Cancer Type, Location and Year: blood clots - Surgical History Surgery Procedure, Year, and Place: - 2006 - Immunization History Date of Tetanus Vaccine: UTD Date of Influenza Vaccine: NO Infectious Disease History: No Infectious Disease History: Denies: Hx Clostridium Difficile, Hx Hepatitis, Hx Human Immunodeficiency Virus (HIV), Hx of Known/Suspected MRSA, Hx Shingles, Hx Tuberculosis, Traveled Outside the [place] in Last 30 Days - Family History Known Family History: Positive: Diabetes, Other - epilepsy Negative: Respiratory Disease - Social History Alcohol Use: Weekly Alcohol Amount: On weekends Hx Substance Use: No Substance Use Type: Reports: None Hx Tobacco Use: Yes Smoking Status (MU): Current Some Day Smoker Review of Systems Constitutional: Negative Negative: Blurred Vision Negative: Vomiting Positive: Myalgia - neck pain Positive: Headache All Other Systems Reviewed And Are Negative: Yes Physical Exam - Summary Physical Exam Summary: Appearance: Well-appearing, Well-nourished, lying in bed comfortably Skin: Warm, dry, no obvious rash Eyes: sclera anicteric, no conjunctiva pallor ENT: mucous membranes moist, pharynx appears normal Neck: Supple, nontender Respiratory: Clear to auscultation, no signs of respiratory distress Cardiovascular: Normal S1, S2. No murmurs. Normal distal pulses in tibial and radial bilaterally. Abdomen: Soft, nontender, normal active bowel sounds present Musculoskeletal: Normal, Strength/ROM Intact Neurological: A&Ox3, awake and alert, mentation is normal, speech is fluent and appropriate, normal finger to nose Psychiatric: affect is normal, does not appear anxious or depressed Triage Information Reviewed: Yes Vital Signs On Initial Exam: Initial Vitals Temp Pulse Resp BP Pulse Ox 97.9 F 72 16 122/62 99 02/04/18 20:52 02/04/18 20:52 02/04/18 20:52 02/04/18 20:52 02/04/18 20:52 Vital Signs Reviewed: Yes Diagnostics - Vital Signs Vital Signs Temp Pulse Resp BP Pulse Ox 02/04/18 20:52 97.9 F 72 16 122/62 99 - Laboratory Lab Results: Lab Results 02/04/18 02/04/18 02/04/18 Range/Units 22:31 22:32 22:32 WBC 6.5 (3.5-10.8) 10^3/ul RBC 4.65 (4.0-5.4) 10^6/ul Hgb 13.6 (12.0-16.0) g/dl Hct 41 (35-47) % MCV 87 (80-97) fL MCH 29 (27-31) pg MCHC 34 (31-36) g/dl RDW 13 (10.5-15) % Plt Count 341 (150-450) 10^3/ul MPV 8.0 (7.4-10.4) um3 Neut % (Auto) 47.0 (38-83) % Lymph % (Auto) 43.1 (25-47) % Fajardo % (Auto) 5.4 (0-7) % Eos % (Auto) 3.9 (0-6) % Baso % (Auto) 0.6 (0-2) % Absolute Neuts (auto) 3.1 (1.5-7.7) 10^3/ul Absolute Lymphs (auto) 2.8 (1.0-4.8) 10^3/ul Absolute Monos (auto) 0.4 (0-0.8) 10^3/ul Absolute Eos (auto) 0.3 (0-0.6) 10^3/ul Absolute Basos (auto) 0 (0-0.2) 10^3/ul Absolute Nucleated RBC 0 10^3/ul Nucleated RBC % 0.3 Sodium 136 L (139-145) mmol/L Potassium TNP Chloride 103 (101-111) mmol/L Carbon Dioxide 27 (22-32) mmol/L Anion Gap 6 (2-11) mmol/L BUN 14 (6-24) mg/dL Creatinine 0.62 (0.51-0.95) mg/dL Est GFR ( Amer) 145.4 (>60) Est GFR (Non-Af Amer) 113.0 (>60) BUN/Creatinine Ratio 22.6 H (8-20) Glucose 91 (70-100) mg/dL Calcium 9.3 (8.6-10.3) mg/dL Total Bilirubin 0.20 (0.2-1.0) mg/dL AST TNP ALT 15 (7-52) U/L Alkaline Phosphatase 95 (34-104) U/L Total Protein 7.4 (6.4-8.9) g/dL Albumin 4.1 (3.2-5.2) g/dL Globulin 3.3 (2-4) g/dL Albumin/Globulin Ratio 1.2 (1-3) Beta HCG, Quant < 0.60 mIU/mL 02/04/18 Range/Units 23:37 WBC (3.5-10.8) 10^3/ul RBC (4.0-5.4) 10^6/ul Hgb (12.0-16.0) g/dl Hct (35-47) % MCV (80-97) fL MCH (27-31) pg MCHC (31-36) g/dl RDW (10.5-15) % Plt Count (150-450) 10^3/ul MPV (7.4-10.4) um3 Neut % (Auto) (38-83) % Lymph % (Auto) (25-47) % Fajardo % (Auto) (0-7) % Eos % (Auto) (0-6) % Baso % (Auto) (0-2) % Absolute Neuts (auto) (1.5-7.7) 10^3/ul Absolute Lymphs (auto) (1.0-4.8) 10^3/ul Absolute Monos (auto) (0-0.8) 10^3/ul Absolute Eos (auto) (0-0.6) 10^3/ul Absolute Basos (auto) (0-0.2) 10^3/ul Absolute Nucleated RBC 10^3/ul Nucleated RBC % Sodium (139-145) mmol/L Potassium TNP Chloride (101-111) mmol/L Carbon Dioxide (22-32) mmol/L Anion Gap (2-11) mmol/L BUN (6-24) mg/dL Creatinine (0.51-0.95) mg/dL Est GFR ( Amer) (>60) Est GFR (Non-Af Amer) (>60) BUN/Creatinine Ratio (8-20) Glucose (70-100) mg/dL Calcium (8.6-10.3) mg/dL Total Bilirubin (0.2-1.0) mg/dL AST TNP ALT (7-52) U/L Alkaline Phosphatase (34-104) U/L Total Protein (6.4-8.9) g/dL Albumin (3.2-5.2) g/dL Globulin (2-4) g/dL Albumin/Globulin Ratio (1-3) Beta HCG, Quant mIU/mL Result Diagrams: 02/04/18 22:32 02/05/18 01:01 Lab Statement: Any lab studies that have been ordered have been reviewed, and results considered in the medical decision making process. - CT Brain CTA CT Interpretation Completed By: Radiologist - No evidence for major vascular occlusion or cerebral aneurysm. Dural sinuses appear stable and patent. Dr. Galicia has reviewed this report. Headache Course/Dx - Diagnoses Provider Diagnoses: Headache Discharge - Sign-Out/Discharge Documenting (check all that apply): Discharge/Admit/Transfer - Discharge Plan Condition: Good Disposition: HOME Patient Education Materials: Tension Headache (ED) Referrals: Skylar Jiménez MD [Primary Care Provider] - - Billing Disposition and Condition Condition: GOOD Disposition: HOME The documentation as recorded by the Deonte billy Julia accurately reflects the service I personally performed and the decisions made by , Rafiq Galicia MD.
--- NOTE | 2018-02-05 07:37 | RAD ---
HISTORY: Headache, history of venous sinus thrombosis COMPARISONS: MR venogram dated April 27, 2016 TECHNIQUE: Multiple contiguous axial CT scans were obtained of the head with and without intravenous contrast. Coronal and sagittal multiplanar reformations are also submitted for review. 6 FINDINGS: HEMORRHAGE/INFARCT: There is no hemorrhage or acute infarct. MASSES/SHIFT: There is no mass or shift. EXTRA-AXIAL SPACES: There are no extra-axial fluid collections. SULCI AND VENTRICLES: The sulci and ventricles are normal in size and position for the patient's stated age. CEREBRUM: There are no focal parenchymal abnormalities. BRAINSTEM: There are no focal parenchymal abnormalities. CEREBELLUM: There are no focal parenchymal abnormalities. VESSELS: The venous sinuses are patent, without thrombosis or occlusion. The right transverse and sigmoid system is dominant over the left, the appearance is similar to the MRI venogram of April 27, 2016. As noted at that time, there is a falcine sinus. The straight sinus is also patent. The arterial tree is normal. PARANASAL SINUSES: The paranasal sinuses are clear. ORBITS: The orbits are unremarkable. BONES AND SOFT TISSUE: No bone or soft tissue abnormalities are noted. OTHER: None IMPRESSION: 1. NO ACUTE INTRACRANIAL PATHOLOGY. 2. NO VENOUS SINUS THROMBOSIS OR OCCLUSION.
== END 2018-02-05 01:36 | disposition home or self-care (01) ==
LOC: ED 20:45
DX: R51 Headache (principal); F17.200 Nicotine dependence, unspecified, uncomplicated
CPT/HCPCS: 36415; 70470; 80053; 84702; 85025; 96374; 99283; Q9967

== ENCOUNTER 2018-03-07 08:09 | Emergency (ER) | payer OTHER ==
--- NOTE | 2018-03-07 08:32 | ED ---
- HPI Summary HPI Summary: Patient is a 32-year-old female who presents emergency department for lower abdominal cramping that started early this morning. Patient notes that she recently found out she is . She has not yet seen her OB or had a confirmed intrauterine . Pain is constant and sharp and crampy in nature. No current modifying factors. She denies fever, urinary symptoms, nausea, vomiting, diarrhea, constipation. Patient does note vaginal discharge she states is normal for her without change in color or odor. She does note she is having rhinorrhea over the last few weeks and thinks she has seasonal allergies. Patient otherwise has no past medical history. A1. - History of Current Complaint Chief Complaint: EDAbdPain Stated Complaint: ABD PAIN Time Seen by Provider: 03/07/18 08:18 Hx Obtained From: Patient Pain Intensity: 5 - Assessment Hx Now: No Hx Hysterectomy: No - Allergies/Home Medications Allergies/Adverse Reactions: Allergies Allergy/AdvReac Type Severity Reaction Status Date / Time Penicillins Allergy Hives Verified 03/07/18 08:10 PMH/Surg Hx/FS Hx/Imm Hx Previously Healthy: Yes Endocrine/Hematology History: Reports: Hx Anticoagulant Therapy - intermediate accountant use , however not currently taking as of 08/01/17 Denies: Hx Diabetes, Hx Thyroid Disease Cardiovascular History: Reports: Hx Deep Vein Thrombosis, Hx Embolism, Other Cardiovascular Problems/Disorders - HEART MURMUR Denies: Hx Hypertension, Hx Pacemaker/ICD Respiratory History: Reports: Hx Asthma, Other Respiratory Problems/Disorders - allergic rhinitis, smoker Denies: Hx Chronic Obstructive Pulmonary Disease (COPD) GI History: Denies: Hx Ulcer History: Denies: Hx Renal Disease Musculoskeletal History: Reports: Other Musculoskeletal History - 2006 (left) leg DVT Sensory History: Reports: Hx Hearing Problem - (left) ear Denies: Hx Hearing Aid Neurological History: Reports: Other Neuro Impairments/Disorders - 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 Psychiatric History: Reports: Hx Anxiety, Hx Depression - frequent crying, Hx Panic Disorder - PANIC ATTACKS-ANXIETY, Other Psychiatric Issues/Disorders - ETOH hx (3 mixed drinks per day) - Cancer History Cancer Type, Location and Year: blood clots - Surgical History Surgery Procedure, Year, and Place: - 2006 - Immunization History Date of Tetanus Vaccine: UTD Date of Influenza Vaccine: NO Infectious Disease History: No Infectious Disease History: Denies: Hx Clostridium Difficile, Hx Hepatitis, Hx Human Immunodeficiency Virus (HIV), Hx of Known/Suspected MRSA, Hx Shingles, Hx Tuberculosis, Traveled Outside the [place] in Last 30 Days - Family History Known Family History: Positive: None, Diabetes, Other - epilepsy Negative: Respiratory Disease Family History: R & n/C - Social History Occupation: Employed Full-time Lives: With Family Alcohol Use: Weekly Alcohol Amount: On weekends Hx Substance Use: No Substance Use Type: Reports: None Hx Tobacco Use: Yes Smoking Status (MU): Current Some Day Smoker Review of Systems Constitutional: Negative Negative: Fever, Chills Eyes: Negative Positive: Nasal Discharge Cardiovascular: Negative Respiratory: Negative Positive: Abdominal Pain. Negative: Vomiting, Diarrhea, Nausea Genitourinary: Negative Negative: burning, dysuria, flank pain Neurological: Negative All Other Systems Reviewed And Are Negative: Yes Physical Exam - Physical Exam Triage Information Reviewed: Yes Vital Signs Reviewed: Yes Appearance: Positive: Well-Appearing - Patient sitting up in bed in no acute distress. Skin: Positive: Warm, Dry Head/Face: Positive: Normal Head/Face Inspection Eyes: Positive: Normal Neck: Positive: Supple Respiratory/Lung Sounds: Positive: Clear to Auscultation, Breath Sounds Present Cardiovascular: Positive: Normal, RRR Abdomen Description: Positive: Other: - Obese. Abdomen is soft and nontender. No rebound tenderness or guarding.. Negative: CVA Tenderness (R), CVA Tenderness (L) Neurological: Positive: Normal, CN Intact II-III Psychiatric: Positive: Normal Diagnostics - Vital Signs Vital Signs Temp Pulse Resp BP Pulse Ox 03/07/18 08:09 97.4 F 84 18 121/66 99 - Laboratory Result Diagrams: 03/07/18 08:39 03/07/18 08:39 Lab Statement: Any lab studies that have been ordered have been reviewed, and results considered in the medical decision making process. Course/Dx - Course Course Of Treatment: Patient presenting with lower abdominal pain in early . She has a benign abdominal exam. She is afebrile with stable vital signs. Will obtain basic labs, urinalysis and pelvic ultrasound to evaluate for IUP. CBC and CMP are unremarkable. Quant beta HCG is 1907. Transvaginal u/s per radiology: IMPRESSION: In the right adnexa which is extra ovarian adnexal extrauterine there is a. structure resembling a decidual reaction and a gestational sac measuring 1.2 x 1.0 x 1.0. cm. The possibility of an ectopic should BE considered. I called and spoke with mady SNOW, Dr. Sloan, and discussed case at 0945. He will examine pt. in the ED. Results were discussed with pt. Pt. was examined by Dr. Sloan and he agrees this is an ectopic . He would like to treat with methotrexate. Dose given in ED. He would like a repeat quant. on and to see her in his office in one week. Pt. to return to ER for increased pain, heavy bleeding or if concerned. - Differential Diagnosis/HQI/PQRI: Incomplete , Missed , Spontaneous , Threatened , Appendicitis, Cervicitis, Ectopic , Intrauterine , STI/STD - Diagnoses Provider Diagnoses: Ectopic Discharge - Sign-Out/Discharge Documenting (check all that apply): Discharge/Admit/Transfer - Discharge Plan Condition: Good Disposition: HOME Patient Education Materials: Ectopic (DC) Referrals: Skylar Jiménez MD [Primary Care Provider] - Jamaal Sloan MD [Medical Doctor] - Additional Instructions: Schedule a follow up appointment with Dr. Sloan's for one week Go to lab for repeat level on 03/10/18 Return to ER for increased pain, heavy vaginal bleeding, or if concerned - Billing Disposition and Condition Condition: GOOD Disposition: Home
[2018-03-07 08:55] LABS: ABS Basophils 0.1 10^3/ul (0-0.2); ABS Eosinophils 0.2 10^3/ul (0-0.6); ABS Lymphocytes 1.7 10^3/ul (1.0-4.8); ABS Monocytes 0.4 10^3/ul (0-0.8); ABS Neutrophils 3.7 10^3/ul (1.5-7.7); ABS Nucleated RBC 0 10^3/ul; Eosinophil % 2.6 % (0-6); Hematocrit 36 % (35-47); Hemoglobin 12.2 g/dl (12.0-16.0); Mean Corpuscular HGB Conc 34 g/dl (31-36); Mean Corpuscular Hemoglobin 29 pg (27-31); Mean Corpuscular Volume 86 fL (80-97); Mean Platelet Volume 7.4 um3 (7.4-10.4); Nucleated Red Blood Cells % 0.1; Platelet Count 325 10^3/ul (150-450); Red Blood Count 4.23 10^6/ul (4.00-5.40); Red Cell Distribution Width 13 % (10.5-15)
[2018-03-07 09:12] LABS: EGFR Non-African American 119.7 (>60)
[2018-03-07 09:42] LABS: Urine Appearance Cloudy; Urine Blood Negative (Negative); Urine Color Yellow; Urine Ketones Negative (Negative); Urine Protein Negative (Negative); Urine Specific Gravity 1.023 (1.010-1.030); Urine Urobilinogen Negative (Negative)
--- NOTE | 2018-03-07 09:43 | RAD ---
Indication: Pelvic pain, positive test. Real-time sonography of the pelvis was performed utilizing endovaginal technique. The uterus measures 10.3 x 5.3 x 5.9 cm. There is no evidence of intrauterine gestational sac. In the right adnexa there appears to be an extra ovarian structure with a decidual reaction. This is located between the right ovary and the uterus and measures approximately 11 mm with a sac size of 4 mm. Internal echoes are noted which may represent early yolk sac. The possibility of an ectopic should BE considered in the right adnexa. The right ovary measures 3.3 x 2.3 x 1.8 cm. The left ovary measures 3.7 x 2.9 x 1.8 cm. IMPRESSION: In the right adnexa which is extra ovarian adnexal extrauterine there is a structure resembling a decidual reaction and a gestational sac measuring 1.2 x 1.0 x 1.0 cm. The possibility of an ectopic should BE considered. TONE Mari was notified of results at 9:39 AM.
[2018-03-07] MEDS ORDERED: Ondansetron ODT TAB* 4 MG PO ONE (11:37)
--- NOTE | 2018-03-07 12:18 | CONS ---
EMERGENCY ROOM CONSULTATION REPORT: DATE OF CONSULT: 03/07/18 HISTORY OF PRESENT ILLNESS: Mrs. Ledezma is a 32-year-old with a last menstrual period of 01/23/18 and estimated due date of 10/30/18 by her last menstrual period. She presented to the emergency room with complaints of lower abdominal pain and concerned this may be due to her . PAST MEDICAL HISTORY: In 2006, left lower extremity deep vein thrombosis; anxiety, depression and panic attacks. PAST SURGICAL HISTORY: section in 2006. ALLERGIES: PENICILLIN. FAMILY HISTORY: Significant for diabetes and epilepsy. SOCIAL HISTORY: The patient is currently employed. She admits to cigarette use sporadically and admits to 3 drinks a day of alcohol and no recreational drugs. REVIEW OF SYSTEMS: The patient denied chest pain, shortness of breath, nauseas , vomiting or diarrhea and no urinary symptoms. She also did not complain of generalized malaise, fever or chills. PHYSICAL EXAM: On my meeting the patient, she was in bed, sitting up, in no apparent distress and no discomfort. Her lungs were clear to auscultation bilaterally. Her heart showed a regular rate and rhythm. Her abdomen is soft, nondistended with normal bowel sounds, nontender with no rebound or guarding noted. Pelvic exam was deferred. Her vital signs in the emergency room are stable. She is afebrile with a normal blood pressure. DIAGNOSTIC STUDIES/LAB DATA: The patient was noted to have a normal complete blood cell and a normal comprehensive metabolic panel with a quantitative hCG of 1907 mIU/mL. She also had a pelvic ultrasound, which revealed no intrauterine ; however, there was a clearly defined right adnexal mass with 1 cm in diameter and what appears to be a gestational sac, which was consistent with 5-plus weeks . IMPRESSION: This is a 32-year-old lady with a positive test with no intrauterine on ultrasound and a right adnexal mass consistent with an ectopic . I had a thorough discussion with the patient. We discussed her clinical diagnosis, ectopic . We discussed the possible etiology of this as well as treatment and management options. I offered the patient treatment with chemotherapy, methotrexate as a single dose protocol and we discussed the indications, contraindications to this medication as well as common side effects, complications and alternative treatments to this. The patient is also aware that this could be managed surgically. After the patient consider the information given to her in our discussion, she agreed for methotrexate treatment for ectopic . She is to receive 50 mg/m2 x1 dose IM. She was instructed to follow up at my office 1 week from today and was given precautions for side effects from this medication. [id number]/[facility] #: [id number] MTDD
[2018-03-07] MEDS ORDERED: Ondansetron ODT TAB* 4 MG ONE (12:25)
[2018-03-07] MEDS: Methotrexate* 25 MG/ML 4 ML VIAL IM ONE ×2 (12:54→14:17)
[2018-03-07 14:26] VITALS: BP 111/79
== END 2018-03-07 11:00 | disposition home or self-care (01) ==
LOC: ED 08:09
DX: O00.90 Unspecified ectopic pregnancy without intrauterine pregnancy (principal); J45.909 Unspecified asthma, uncomplicated; F41.0 Panic disorder [episodic paroxysmal anxiety]; F32.9 Major depressive disorder, single episode, unspecified; Z88.0 Allergy status to penicillin; Z86.718 Personal history of other venous thrombosis and embolism; Z72.0 Tobacco use; Z83.3 Family history of diabetes mellitus; Z82.0 Family history of epilepsy and other diseases of the nervous system
CPT/HCPCS: 36415; 76817; 80053; 81003; 84702; 85025; 86850; 86900; 86901; 96372; 99282; A9270-GY; J9260

== ENCOUNTER 2018-05-28 10:53 | Emergency (ER) | payer OTHER ==
--- NOTE | 2018-05-28 12:29 | ED ---
Abdominal Pain/Female - HPI Summary HPI Summary: This patient is a 33 year old F presenting to [facility] with a chief complaint of intermittent left sided ABD pain that began a couple days ago. The patient rates the pain 6/10 in severity and states it radiates into her back, she states that it lasts for about an hour at a time. Symptoms aggravated by eating and jostling movements. She states that when she eats she needs to vomit to feel comfortable. She states that when she eats anything she feels full no matter how small it is. Patient reports decreased appetite. Patient denies n/v/ d. Pt states she has hx of blood clots and has a rx for blood thinner but she does not take them. LNMP was on 05-21-18. Pt had an ectopic on 03-06. - History of Current Complaint Chief Complaint: EDAbdPain Stated Complaint: ABD PAIN Time Seen by Provider: 05/28/18 12:16 Hx Obtained From: Patient Hx Last Menstrual Period: December 19 Onset/Duration: Still Present Timing: Constant Severity Initially: Moderate Severity Currently: Moderate Pain Intensity: 6 Pain Scale Used: 0-10 Numeric Location: Discrete At: LUQ, Discrete At: LLQ Radiates: Yes Radiates to: Back Associated Signs and Symptoms: Negative: Nausea, Vomiting, Diarrhea Allergies/Adverse Reactions: Allergies Allergy/AdvReac Type Severity Reaction Status Date / Time Penicillins Allergy Hives Verified 05/28/18 11:08 Home Medications: Home Medications NK [No Home Medications Reported] 05/28/18 [History Confirmed 05/28/18] PMH/Surg Hx/FS Hx/Imm Hx Endocrine/Hematology History: Reports: Hx Anticoagulant Therapy - [facility] use , however not currently taking as of 08/01/17 Denies: Hx Diabetes, Hx Thyroid Disease Cardiovascular History: Reports: Hx Deep Vein Thrombosis, Hx Embolism, Other Cardiovascular Problems/Disorders - HEART MURMUR Denies: Hx Hypertension, Hx Pacemaker/ICD Respiratory History: Reports: Hx Asthma, Other Respiratory Problems/Disorders - allergic rhinitis, smoker Denies: Hx Chronic Obstructive Pulmonary Disease (COPD) GI History: Denies: Hx Ulcer History: Denies: Hx Renal Disease Musculoskeletal History: Reports: Other Musculoskeletal History - 2006 (left) leg DVT Sensory History: Reports: Hx Hearing Problem - (left) ear Denies: Hx Hearing Aid Neurological History: Reports: 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 Psychiatric History: Reports: Hx Anxiety, Hx Depression - frequent crying, Hx Panic Disorder - PANIC ATTACKS-ANXIETY, Other Psychiatric Issues/Disorders - ETOH hx (3 mixed drinks per day) - Cancer History Cancer Type, Location and Year: blood clots - Surgical History Surgery Procedure, Year, and Place: - 2006 - Immunization History Date of Tetanus Vaccine: UTD Date of Influenza Vaccine: NO Infectious Disease History: No Infectious Disease History: Denies: Hx Clostridium Difficile, Hx Hepatitis, Hx Human Immunodeficiency Virus (HIV), Hx of Known/Suspected MRSA, Hx Shingles, Hx Tuberculosis, Traveled Outside the [place] in Last 30 Days - Family History Known Family History: Positive: Diabetes, Other - epilepsy Negative: Respiratory Disease - Social History Alcohol Use: Weekly Alcohol Amount: On weekends Hx Substance Use: No Substance Use Type: Reports: None Hx Tobacco Use: Yes Smoking Status (MU): Current Some Day Smoker Review of Systems Negative: Fever Positive: Abdominal Pain. Negative: Vomiting, Diarrhea, Nausea All Other Systems Reviewed And Are Negative: Yes Physical Exam - Summary Physical Exam Summary: Appearance: The patient is well-nourished in no acute distress and in no acute pain. Skin: The skin is warm and dry and skin color reflects adequate perfusion. HEENT: The head is normocephalic and atraumatic. The pupils are equal and reactive. The conjunctivae are clear and without drainage. Nares are patent and without drainage. Mouth reveals moist mucous membranes and the throat is without erythema and exudate. The external ears are intact. The ear canals are patent and without drainage. The tympanic membranes are intact. Neck: The neck is supple with full range of motion and non-tender. There are no carotid bruits. There is no neck vein distension. Respiratory: Chest is non-tender. Lungs are clear to auscultation and breath sounds are symmetrical and equal. Cardiovascular: Heart is regular rate and rhythm. There is no murmur or rub auscultated. There is no peripheral edema and pulses are symmetrical and equal. Abdomen: The abdomen is soft and non-tender. There are normal bowel sounds heard in all four quadrants and there is no organomegaly palpated. Musculoskeletal: There is no back tenderness noted. Extremities are non-tender with full range of motion. There is good capillary refill. There is no peripheral edema or calf tenderness elicited. Neurological: Patient is alert and oriented to person, place and time. The patient has symmetrical motor strength in all four extremities. Cranial nerves are grossly intact. Deep tendon reflexes are symmetrical and equal in all four extremities. Psychiatric: The patient has an appropriate affect and does not exhibit any anxiety or depression. Triage Information Reviewed: Yes Vital Signs On Initial Exam: Initial Vitals Temp Pulse Resp BP Pulse Ox 97.3 F 68 16 127/65 98 05/28/18 11:02 05/28/18 11:02 05/28/18 11:02 05/28/18 11:02 05/28/18 11:02 Vital Signs Reviewed: Yes Diagnostics - Vital Signs Vital Signs Temp Pulse Resp BP Pulse Ox 05/28/18 11:02 97.3 F 68 16 127/65 98 - Laboratory Result Diagrams: 05/28/18 12:54 05/28/18 12:54 Lab Statement: Any lab studies that have been ordered have been reviewed, and results considered in the medical decision making process. - CT CT ABD/Pelvis CT Interpretation Completed By: Radiologist - Normal appendix. No obstructive uropathy is noted. ED physician has reviewed this radiology report. Abdominal Pain Fem Course/Dx - Course Course Of Treatment: Ms. Ledezma presented with a complaint of intermittent left- sided abdominal/flank pain for a couple of days. She had some mild left-sided tenderness. Her workup was negative including labs and CT scan. I don't think anything dangerous is occurring recommended close follow-up and symptomatic treatment. - Diagnoses Provider Diagnoses: Abdominal pain Discharge - Sign-Out/Discharge Documenting (check all that apply): Patient Departure - Discharge Plan Condition: Stable Disposition: HOME Patient Education Materials: Abdominal Pain (ED) Referrals: Skylar Jiménez MD [Primary Care Provider] - 2 Days Additional Instructions: RETURN TO THE EMERGENCY DEPARTMENT FOR CHANGING OR WORSENING SYMPTOMS - Billing Disposition and Condition Condition: STABLE Disposition: Home - Attestation Statements Document Initiated by Alvin: Yes Documenting Scribe: Yasir Ruiz Provider For Whom Alvin is Documenting (Include Credential): Rafiq Bello MD Scribe Attestation: Yasir Lundberg scribed for Rafiq Bello MD on 05/28/18 at 1858. Scribe Documentation Reviewed: Yes Provider Attestation: The documentation as recorded by the Yasir billy accurately reflects the service I personally performed and the decisions made by me, Rafiq Bello MD
[2018-05-28 12:54] LABS: Urine Appearance Clear; Urine Blood Negative (Negative); Urine Color Yellow; Urine Ketones Negative (Negative); Urine Protein Negative (Negative); Urine Specific Gravity 1.011 (1.010-1.030); Urine Urobilinogen Negative (Negative)
[2018-05-28 13:06] LABS: ABS Basophils 0 10^3/ul (0-0.2); ABS Eosinophils 0.2 10^3/ul (0-0.6); ABS Lymphocytes 1.5 10^3/ul (1.0-4.8); ABS Monocytes 0.3 10^3/ul (0-0.8); ABS Neutrophils 3.2 10^3/ul (1.5-7.7); ABS Nucleated RBC 0 10^3/ul; Eosinophil % 3.1 % (0-6); Hematocrit 38 % (35-47); Hemoglobin 12.8 g/dl (12.0-16.0); Lymphocyte % 28.7 % (25-47); Mean Corpuscular HGB Conc 33 g/dl (31-36); Mean Corpuscular Hemoglobin 29 pg (27-31); Mean Corpuscular Volume 86 fL (80-97); Mean Platelet Volume 7.6 um3 (7.4-10.4); Nucleated Red Blood Cells % 0.2; Platelet Count 311 10^3/ul (150-450); Red Blood Count 4.48 10^6/ul (4.00-5.40); Red Cell Distribution Width 14 % (10.5-15); White Blood Count 5.2 10^3/ul (3.5-10.8)
[2018-05-28 13:22] LABS: EGFR Non-African American 106.3 (>60)
[2018-05-28] MEDS ORDERED: Iohexol 300* (CONTRAST) 10 ML SDV IV ONE (14:20)
--- NOTE | 2018-05-28 17:09 | RAD ---
Indication: Left flank pain. Contrast: Administered 115.0 ml of Contrast -- mg/ml CT of the abdomen and pelvis was performed after oral and IV contrast administration. Coronal and sagittal reconstructed images were obtained. Comparison is made with previous exam dated December 23, 2007. The lung bases demonstrate no pleural fluid, nodules or masses. Heart is of normal size without evidence of pericardial effusion. Liver is normal in size. No focal lesions or intrahepatic duct dilatation is noted. The spleen is normal in size. No adrenal masses are noted. The kidneys demonstrate symmetric nephrograms without focal lesions. No retroperitoneal lymphadenopathy is noted. No dilated loops of bowel are noted. CT of the pelvis demonstrates no retroperitoneal or pelvic lymphadenopathy. There is diverticulosis of the sigmoid colon without diverticulitis. The appendix is visualized and appears normal. Contrast is noted in the right colon. Follicular cysts are noted in both ovaries. No free fluid is noted in the pelvis. No hernias are noted. The visualized bony structures are grossly unremarkable. IMPRESSION: Normal appendix. No obstructive uropathy is noted.
[2018-05-28 18:05] VITALS: BP 139/88
== END 2018-05-28 18:04 | disposition home or self-care (01) ==
LOC: ED 10:53
DX: R10.32 Left lower quadrant pain (principal); R10.12 Left upper quadrant pain; F17.200 Nicotine dependence, unspecified, uncomplicated; Z87.59 Personal history of other complications of pregnancy, childbirth and the puerperium; Z88.8 Allergy status to other drugs, medicaments and biological substances
CPT/HCPCS: 36415; 74177; 80053; 81003; 83605; 83690; 84702; 85025; 86140; 99282; Q9967

== ENCOUNTER 2018-10-16 18:20 | Emergency (ER) | payer OTHER ==
[2018-10-16 21:14] VITALS: BP 130/78
== END 2018-10-16 22:10 | disposition left against medical advice (07) ==
LOC: ED 18:20
DX: M79.604 Pain in right leg (principal); Z53.21 Procedure and treatment not carried out due to patient leaving prior to being seen by health care provider

== ENCOUNTER 2018-10-18 19:33 | Emergency (ER) | payer OTHER ==
[2018-10-18] MEDS ORDERED: Rivaroxaban TAB(*) 20 MG TAB PO ONE (20:34)
--- NOTE | 2018-10-18 20:46 | ED ---
Lower Extremity - HPI Summary HPI Summary: 33-year-old female presents with right calf pain last week. States it started after she came back after she was a passenger from a drive from [facility]. Is not currently a smoker. She does have personal history of blood clots and has been on xarelto for the past year. She states that the past 2 weeks she has been inconsistent in taking her xarelto. She states that she came here 2 days ago and had ultrasound but did not wait for the results. u/s shows a DVT. She states she took xarelto that day but has not taken it since. She denies any chest pain shortness breath. No palpitations. Is not currently on control. States she was seen by Dr. Bustos for about blood clots. she denies any trauma to the area. - History of Current Complaint Chief Complaint: EDExtremityLower Stated Complaint: RT LEG PAIN Time Seen by Provider: 10/18/18 20:26 Hx Last Menstrual Period: December 19 Pain Intensity: 6 - Allergies/Home Medications Allergies/Adverse Reactions: Allergies Allergy/AdvReac Type Severity Reaction Status Date / Time Penicillins Allergy Hives Verified 10/18/18 20:22 PMH/Surg Hx/FS Hx/Imm Hx Endocrine/Hematology History: Reports: Hx Anticoagulant Therapy - [employer] use , however not currently taking as of 08/01/17 Denies: Hx Diabetes, Hx Thyroid Disease Cardiovascular History: Reports: Hx Deep Vein Thrombosis, Hx Embolism, Other Cardiovascular Problems/Disorders - HEART MURMUR Denies: Hx Hypertension, Hx Pacemaker/ICD Respiratory History: Reports: Hx Asthma, Other Respiratory Problems/Disorders - allergic rhinitis, smoker Denies: Hx Chronic Obstructive Pulmonary Disease (COPD) GI History: Denies: Hx Ulcer History: Denies: Hx Renal Disease Musculoskeletal History: Reports: Other Musculoskeletal History - 2006 (left) leg DVT Sensory History: Reports: Hx Hearing Problem - (left) ear Denies: Hx Hearing Aid Neurological History: Reports: 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 Psychiatric History: Reports: Hx Anxiety, Hx Depression - frequent crying, Hx Panic Disorder - PANIC ATTACKS-ANXIETY, Other Psychiatric Issues/Disorders - ETOH hx (3 mixed drinks per day) - Cancer History Cancer Type, Location and Year: blood clots Hx Chemotherapy: No Hx Radiation Therapy: No - Surgical History Surgery Procedure, Year, and Place: - 2006 - Immunization History Date of Tetanus Vaccine: utd Date of Influenza Vaccine: none Infectious Disease History: No Infectious Disease History: Denies: Hx Clostridium Difficile, Hx Hepatitis, Hx Human Immunodeficiency Virus (HIV), Hx of Known/Suspected MRSA, Hx Shingles, Hx Tuberculosis, Traveled Outside the [place] in Last 30 Days - Family History Known Family History: Positive: Diabetes, Other - epilepsy Negative: Respiratory Disease - Social History Alcohol Use: Weekly Alcohol Amount: On weekends Hx Substance Use: No Substance Use Type: Reports: None Hx Tobacco Use: Yes Smoking Status (MU): Current Some Day Smoker Review of Systems Negative: Fever Negative: Chest Pain Negative: Shortness Of Breath Positive: Myalgia - right leg pain All Other Systems Reviewed And Are Negative: Yes Physical Exam Triage Information Reviewed: Yes Vital Signs On Initial Exam: Initial Vitals Temp Pulse Resp BP Pulse Ox 98.1 F 72 16 121/86 97 10/18/18 19:50 10/18/18 19:50 10/18/18 19:50 10/18/18 19:50 10/18/18 19:50 Vital Signs Reviewed: Yes Appearance: Positive: Well-Appearing Skin: Positive: Warm, Dry Head/Face: Positive: Normal Head/Face Inspection Eyes: Positive: Normal, Conjunctiva Clear ENT: Positive: Pharynx normal Respiratory/Lung Sounds: Positive: Clear to Auscultation, Breath Sounds Present Cardiovascular: Positive: Normal, RRR Musculoskeletal: Positive: Strength/ROM Intact - right leg with pain, Other - tenderness right calf, good pulses, sensation grossly intact Neurological: Positive: Normal Psychiatric: Positive: Normal Diagnostics - Vital Signs Vital Signs Temp Pulse Resp BP Pulse Ox 10/18/18 19:50 98.1 F 72 16 121/86 97 - Laboratory Result Diagrams: 10/18/18 20:46 10/18/18 20:46 Lab Statement: Any lab studies that have been ordered have been reviewed, and results considered in the medical decision making process. - Ultrasound No standard instances Ultrasound Interpretation Completed By: Radiologist Summary of Ultrasound Findings: This study is POSITIVE for DVT with nonocclusive thrombus in the popliteal vein. and tibioperoneal trunk and occlusive thrombus in a posterior tibial vein and. possibly posterior peroneal vein. These findings are similar to prior study. with no proximal propagation of clot. Lower Extremity Course/Dx - Course Course Of Treatment: -year-old female presents with right calf pain last week. States it started after she came back after she was a passenger from a drive from [facility]. Is not currently a smoker. She does have personal history of blood clots and has been on xarelto for the past year although she has been inconsistent in taking the past two weeks. She denies any chest pain shortness breath. No palpitations. u/s from two days ago showed dvt but patient has not been taking her xarelto so will get an ultrasound to see if changed at all to make is not extending more proximal. u/s shows dvt that has not extended proximal. since patient has not been taking medication consistently this does not appear to be caused by the xarelto not working so can have continue to take xarelto at the 20mg dose. will have follow up with dr bustos for continued care but discussed likely may need to be on life long anticoagulation. patient understand and agrees with plan. - Diagnoses Differential Diagnosis/HQI/PQRI: Positive: DVT, Sprain, Strain Provider Diagnoses: Right leg DVT Discharge - Sign-Out/Discharge Documenting (check all that apply): Patient Departure Patient Received Moderate/Deep Sedation with Procedure: No - Discharge Plan Condition: Good Disposition: HOME Prescriptions: Rivaroxaban TAB(*) [Xarelto 20 mg] 20 mg PO DAILY #30 tab Patient Education Materials: Deep Vein Thrombosis (ED) Referrals: Skylar Jiménez MD [Primary Care Provider] - Additional Instructions: you need to consistently take the xarelto daily with food Follow back up with Dr Bustos avoid aspirin and ibuprofen Return to ED if develop any chest pain, shortness of breath or any new or worsening symptoms - Billing Disposition and Condition Condition: GOOD Disposition: Home
[2018-10-18 21:02] LABS: ABS Basophils 0 10^3/ul (0-0.2); ABS Eosinophils 0.2 10^3/ul (0-0.6); ABS Lymphocytes 2.6 10^3/ul (1.0-4.8); ABS Monocytes 0.5 10^3/ul (0-0.8); ABS Neutrophils 4.7 10^3/ul (1.5-7.7); ABS Nucleated RBC 0 10^3/ul; Eosinophil % 2.2 %; Hematocrit 39 % (35-47); Hemoglobin 13.1 g/dl (12.0-16.0); Lymphocyte % 32.6 %; Mean Corpuscular HGB Conc 34 g/dl (31-36); Mean Corpuscular Hemoglobin 29 pg (27-31); Mean Corpuscular Volume 86 fL (80-97); Mean Platelet Volume 7.6 fL (7.4-10.4); Nucleated Red Blood Cells % 0; Platelet Count 314 10^3/ul (150-450); Red Blood Count 4.54 10^6/ul (4.00-5.40); Red Cell Distribution Width 14 % (10.5-15); White Blood Count 7.9 10^3/ul (3.5-10.8)
[2018-10-18 21:06] LABS: INR 0.94 (0.77-1.02)
[2018-10-18 21:11] LABS: Albumin 4.5 g/dL (3.2-5.2); Albumin/Globulin Ratio 1.5 (1-3); BUN/Creatinine Ratio 17.9 (8-20); Calcium 9.3 mg/dL (8.6-10.3); EGFR African American 124.2 (>60); EGFR Non-African American 102.7 (>60); Globulin 3.1 g/dL (2-4); Total Bilirubin 0.2 mg/dL (0.2-1.0); Total Protein 7.6 g/dL (6.4-8.9)
[2018-10-18 21:17] LABS: HCG Pregnancy 2.98 mIU/mL
[2018-10-18 21:50] LABS: Potassium 4.2 mmol/L (3.5-5.0)
[2018-10-18 22:11] VITALS: BP 111/70
== END 2018-10-18 22:12 | disposition home or self-care (01) ==
LOC: ED 19:33
DX: I82.4Z1 Acute embolism and thrombosis of unspecified deep veins of right distal lower extremity (principal); Z88.0 Allergy status to penicillin; Z79.01 Long term (current) use of anticoagulants; J45.909 Unspecified asthma, uncomplicated; Z86.718 Personal history of other venous thrombosis and embolism; J30.9 Allergic rhinitis, unspecified; F17.200 Nicotine dependence, unspecified, uncomplicated
CPT/HCPCS: 36415; 80053; 84702; 85025; 85610; 99282

== ENCOUNTER 2018-10-25 21:01 | Emergency (ER) | payer OTHER ==
--- NOTE | 2018-10-25 23:15 | ED ---
Abdominal Pain/Female - HPI Summary HPI Summary: This patient is a 33 year old F presenting to [facility] with a chief complaint of intermittent LUQ and LLQ abd pain since 05:00. Patient notes that the pain radiates to her left back. Patient reports that she is and found out 2 days ago but is unsure how far along she is. The patient rates the pain 7/10 in severity. Symptoms aggravated by nothing. Symptoms alleviated by nothing. Patient reports diarrhea and decreased appetite. Patient denies N/V or fever. Pt has hx blood clots. Patient takes lovenox. LNMP was 09/15/18 but notes that her period is usually irregular. - History of Current Complaint Chief Complaint: EDAbdPain Stated Complaint: ABD PAIN Time Seen by Provider: 10/25/18 22:52 Hx Obtained From: Patient Hx Last Menstrual Period: December 19 ?: Yes Onset/Duration: Sudden Onset, Lasting Hours, Still Present Timing: Intermittent Episode Lasting Severity Initially: Moderate Severity Currently: Moderate Pain Intensity: 7 Pain Scale Used: 0-10 Numeric Location: Discrete At: LUQ, Discrete At: LLQ Radiates: Yes Radiates to: Back - left back Aggravating Factor(s): Nothing Alleviating Factor(s): Nothing Associated Signs and Symptoms: Positive: Back Pain - left back, Diarrhea. Negative: Fever, Nausea, Vomiting Allergies/Adverse Reactions: Allergies Allergy/AdvReac Type Severity Reaction Status Date / Time Penicillins Allergy Hives Verified 10/25/18 22:54 Home Medications: Home Medications Lovenox(*) SUBCUT DAILY 10/25/18 [History] PMH/Surg Hx/FS Hx/Imm Hx Endocrine/Hematology History: Reports: Hx Anticoagulant Therapy - fpc use , however not currently taking as of 08/01/17 Denies: Hx Diabetes, Hx Thyroid Disease Cardiovascular History: Reports: Hx Deep Vein Thrombosis, Hx Embolism, Other Cardiovascular Problems/Disorders - HEART MURMUR Denies: Hx Hypertension, Hx Pacemaker/ICD Respiratory History: Reports: Hx Asthma, Other Respiratory Problems/Disorders - allergic rhinitis, smoker Denies: Hx Chronic Obstructive Pulmonary Disease (COPD) GI History: Denies: Hx Ulcer History: Denies: Hx Renal Disease Musculoskeletal History: Reports: Other Musculoskeletal History - 2007 (left) leg DVT Sensory History: Reports: Hx Hearing Problem - (left) ear Denies: Hx Hearing Aid Neurological History: Reports: 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 Psychiatric History: Reports: Hx Anxiety, Hx Depression - frequent crying, Hx Panic Disorder - PANIC ATTACKS-ANXIETY, Other Psychiatric Issues/Disorders - ETOH hx (3 mixed drinks per day) - Cancer History Cancer Type, Location and Year: blood clots Hx Chemotherapy: No Hx Radiation Therapy: No - Surgical History Surgery Procedure, Year, and Place: - 2006 - Immunization History Date of Tetanus Vaccine: utd Date of Influenza Vaccine: none Infectious Disease History: No Infectious Disease History: Denies: Hx Clostridium Difficile, Hx Hepatitis, Hx Human Immunodeficiency Virus (HIV), Hx of Known/Suspected MRSA, Hx Shingles, Hx Tuberculosis, Traveled Outside the [place] in Last 30 Days - Family History Known Family History: Positive: Diabetes, Other - epilepsy Negative: Respiratory Disease - Social History Alcohol Use: None Alcohol Amount: On weekends Hx Substance Use: No Substance Use Type: Reports: None Hx Tobacco Use: Yes Smoking Status (MU): Current Some Day Smoker Review of Systems Negative: Fever Negative: Epistaxis Negative: Cough Positive: Abdominal Pain - LLQ and LUQ, Diarrhea. Negative: Vomiting, Nausea Negative: Headache All Other Systems Reviewed And Are Negative: Yes Physical Exam - Summary Physical Exam Summary: VITAL SIGNS: Reviewed. GENERAL: Patient is a well-developed and FEMALE who is lying comfortable in the stretcher. Patient is not in any acute respiratory distress. HEAD AND FACE: No signs of trauma. No ecchymosis, hematomas or skull depressions. No sinus tenderness. EYES: PERRLA, EOMI x 2, No injected conjunctiva, no nystagmus. EARS: Hearing grossly intact. Ear canals and tympanic membranes are within normal limits. MOUTH: Oropharynx within normal limits. NECK: Supple, trachea is midline, no adenopathy, no JVD, no carotid bruit, no c- spine tenderness, neck with full ROM. CHEST: Symmetric, no tenderness at palpation LUNGS: Clear to auscultation bilaterally. No wheezing or crackles. CVS: Regular rate and rhythm, S1 and S2 present, no murmurs or gallops appreciated. ABDOMEN: Soft, tenderness over right lower abdomen. No signs of distention. No rebound no guarding, and no masses palpated. Bowel sounds are normal. EXTREMITIES: FROM in all major joints, no edema, no cyanosis or clubbing. NEURO: Alert and oriented x 3. No acute neurological deficits. Speech is normal and follows commands. SKIN: Dry and warm Triage Information Reviewed: Yes Vital Signs On Initial Exam: Initial Vitals Temp Pulse Resp BP Pulse Ox 97.2 F 89 18 125/68 98 10/25/18 21:12 10/25/18 21:12 10/25/18 21:12 10/25/18 21:12 10/25/18 21:12 Vital Signs Reviewed: Yes Diagnostics - Vital Signs Vital Signs Temp Pulse Resp BP Pulse Ox 10/25/18 22:51 78 115/70 99 10/25/18 21:12 97.2 F 89 18 125/68 98 - Laboratory Result Diagrams: 10/25/18 23:23 10/25/18 23:23 Lab Statement: Any lab studies that have been ordered have been reviewed, and results considered in the medical decision making process. - Ultrasound No standard instances Ultrasound Interpretation Completed By: Radiologist Summary of Ultrasound Findings: Renal US reveals kidneys appear within normal limits. US reveals 5 mm endometrial anechoic focus. Possible early gestational sac, however given findings at the left adnexa, left-sided ectopic within the setting of pseudo-gestational sac is not excluded. Close clinical followup including repeat imaging is recommended. ED physician has reviewed this radiology report. Re-Evaluation - Re-Evaluation First Eval Re-Evaluation Time: 02:06 Comment: Discussed US results with the patient. Patient reports that she has a "sex calendar" where she keeps record of the dates on which she had sexual intercourse. Second Eval Re-Evaluation Time: 02:26 Comment: Discussed plan for discharge and follow up with Dr. Musa in 2 days. Abdominal Pain Fem Course/Dx - Course Course Of Treatment: This patient is a 33 year old F presenting to [facility] with a chief complaint of intermittent LUQ and LLQ abd pain since 05:00. Patient notes that the pain radiates to her left back. Patient reports that she is and found out 2 days ago but is unsure how far along she is. The patient rates the pain 7/10 in severity. Symptoms aggravated by nothing. Symptoms alleviated by nothing. Patient reports diarrhea and decreased appetite. Patient denies N/V or fever. Pt has hx blood clots. Patient takes lovenox. LNMP was 09/15/18 but notes that her period is usually irregular. US Renal reveals, per radiologist, kidneys appear within normal limits. US reveals, per radiologist, 5 mm endometrial anechoic focus. Possible early gestational sac, however given findings at the left adnexa, left-sided ectopic within the setting of pseudo- gestational sac is not excluded. Close clinical followup including repeat imaging is recommended. Consulted Dr. Epstein, who is covering for Dr. Musa who is the patients OB doctor, about the patients case who says that the patient is too early for ectopic and that the US findings are probably consistent with corpus luteum cyst. She recommends to repeat beta count in 48-72 hours and to have the patient follow up with Dr. Musa. Patient will be discharged with follow up from Dr. Musa and prescription for Kelfex for her UTI. The patient is agreeable with this plan. - Diagnoses Differential Diagnosis: Positive: Urinary Tract Infection, Other - early Provider Diagnoses: UTI (urinary tract infection), at early stage - Provider Notifications Discussed Care Of Patient With: Nya Epstein Time Discussed With Above Provider: 02:17 Instructed by Provider To: Other - Consulted Dr. Epstein, who is covering for Dr. Musa who is the patients OB doctor, about the patients case who says that the patient is too early for ectopic and that the US findings are probably consistent with corpus luteum cyst. She recommends to repeat beta count in 48-72 hours and to have the patient follow up with Dr. Musa. Discharge - Sign-Out/Discharge Documenting (check all that apply): Patient Departure - discharge Patient Received Moderate/Deep Sedation with Procedure: No - Discharge Plan Condition: Stable Disposition: HOME Prescriptions: Cephalexin CAP* [Keflex CAP*] 500 mg PO QID #30 cap Patient Education Materials: (ED), Urinary Tract Infection in Women ( ED) Referrals: Jaamal Musa MD [Medical Doctor] - 2 Days Additional Instructions: RETURN TO THE EMERGENCY DEPARTMENT FOR CHANGING OR WORSENING SYMPTOMS. FOLLOW UP WITH DR. MUSA IN 2 DAYS. Take Tylenol as needed for pain. - Billing Disposition and Condition Condition: STABLE Disposition: Home - Attestation Statements Document Initiated by Scribe: Yes Documenting Scribe: Stella Whyte Provider For Whom Scribe is Documenting (Include Credential): Sujata Petersen MD Scribe Attestation: I, Stella Whyte, scribed for Sujata Petersen MD on 10/26/18 at 0554. Scribe Documentation Reviewed: Yes Provider Attestation: The documentation as recorded by the scribe, Stella Whyte accurately reflects the service I personally performed and the decisions made by me, Sujata Petersen MD Status of Scribe Document: Viewed
[2018-10-25 23:33] LABS: ABS Basophils 0 10^3/ul (0-0.2); ABS Eosinophils 0.2 10^3/ul (0-0.6); ABS Lymphocytes 2.3 10^3/ul (1.0-4.8); ABS Monocytes 0.5 10^3/ul (0-0.8); ABS Nucleated RBC 0 10^3/ul; Eosinophil % 2.1 %; Hematocrit 35 % (35-47); Hemoglobin 11.5 g/dl (12.0-16.0); Lymphocyte % 28.3 %; Mean Corpuscular HGB Conc 33 g/dl (31-36); Mean Corpuscular Hemoglobin 29 pg (27-31); Mean Corpuscular Volume 87 fL (80-97); Mean Platelet Volume 7.6 fL (7.4-10.4); Nucleated Red Blood Cells % 0; Platelet Count 279 10^3/ul (150-450); Red Blood Count 4.03 10^6/ul (4.00-5.40); Red Cell Distribution Width 14 % (10.5-15)
[2018-10-25 23:48] LABS: Urine Appearance Cloudy; Urine Bacteria Absent (Absent); Urine Bilirubin Negative (Negative); Urine Blood Negative (Negative); Urine Color Yellow; Urine Glucose Negative (Negative); Urine Ketones Negative (Negative); Urine Nitrite Negative (Negative); Urine Protein Negative (Negative); Urine Red Blood Cell Trace(0-2/hpf) (Absent); Urine Specific Gravity 1.018 (1.010-1.030); Urine Squamous Epithelial Cell Present (Absent); Urine Urobilinogen Negative (Negative); Urine White Blood Cell 1+(6-10/hpf) (Absent)
[2018-10-25 23:50] LABS: Albumin 3.8 g/dL (3.2-5.2); Albumin/Globulin Ratio 1.5 (1-3); Calcium 9.3 mg/dL (8.6-10.3); EGFR African American 138.4 (>60); EGFR Non-African American 114.4 (>60); Globulin 2.6 g/dL (2-4); Magnesium 1.7 mg/dL (1.9-2.7); Potassium 3.2 mmol/L (3.5-5.0); Total Bilirubin 0.2 mg/dL (0.2-1.0); Total Protein 6.4 g/dL (6.4-8.9)
[2018-10-25 23:58] LABS: HCG Pregnancy 121.2 mIU/mL
[2018-10-26] MEDS ORDERED: Potassium Chlor TAB* 20 MEQ TAB.ER PO ONE (00:22)
[2018-10-26] MEDS ORDERED: Cephalexin CAP* 500 MG PO ONE (02:23)
[2018-10-26 02:41] VITALS: BP 93/79
== END 2018-10-26 02:40 | disposition home or self-care (01) ==
LOC: ED 21:01
DX: O23.41 Unspecified infection of urinary tract in pregnancy, first trimester (principal); Z88.0 Allergy status to penicillin; Z86.718 Personal history of other venous thrombosis and embolism; J45.909 Unspecified asthma, uncomplicated; F17.200 Nicotine dependence, unspecified, uncomplicated
CPT/HCPCS: 36415; 76775; 76801; 80053; 81003; 81015; 83735; 84702; 85025; 87077; 87086; 87186; 99284; A9270-GY

== ENCOUNTER 2018-12-09 10:45 | Emergency (ER) | payer OTHER ==
--- NOTE | 2018-12-09 10:53 | ED ---
- HPI Summary HPI Summary: Patient is a 33-year-old 8 week female based on LMP presenting to the ED with vaginal bleeding and abdominal cramping since approximate 6 AM. She denies any nausea or vomiting. She does have a history of ectopic approximately 8 months ago. She was seen in the ED 2 weeks ago with a transvaginal ultrasound which showed an intrauterine . She has not taken anything [id number] for pain control. Patient is B+. She is also currently on Lovenox for a history of blood clots. - History of Current Complaint Chief Complaint: EDOBProblems Stated Complaint: PER EMS Time Seen by Provider: 12/09/18 10:47 Hx Obtained From: Patient Chief Complaint: Concern for Embryonic Dem Onset/Duration: Started Hours Ago Timing: Constant Severity: Moderate Current Severity: Moderate Pain Intensity: 9 Location of Pain: Other: - throughout Character: Cramping Associated Signs and Symptoms: Positive: Negative - Assessment Hx Now: No Hx Hysterectomy: No - Allergies/Home Medications Allergies/Adverse Reactions: Allergies Allergy/AdvReac Type Severity Reaction Status Date / Time Penicillins Allergy Hives Verified 12/09/18 10:52 PMH/Surg Hx/FS Hx/Imm Hx Previously Healthy: Yes Endocrine/Hematology History: Reports: Hx Anticoagulant Therapy - skilled nursing use , however not currently taking as of 08/01/17 Denies: Hx Diabetes, Hx Thyroid Disease Cardiovascular History: Reports: Hx Deep Vein Thrombosis, Hx Embolism, Other Cardiovascular Problems/Disorders - HEART MURMUR Denies: Hx Hypertension, Hx Pacemaker/ICD Respiratory History: Reports: Hx Asthma, Other Respiratory Problems/Disorders - allergic rhinitis, smoker Denies: Hx Chronic Obstructive Pulmonary Disease (COPD) GI History: Denies: Hx Ulcer History: Denies: Hx Renal Disease Musculoskeletal History: Reports: Other Musculoskeletal History - 2006 (left) leg DVT Neurological History: Reports: 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 Psychiatric History: Reports: Hx Anxiety, Hx Depression - frequent crying, Hx Panic Disorder - PANIC ATTACKS-ANXIETY, Other Psychiatric Issues/Disorders - ETOH hx (3 mixed drinks per day) - Cancer History Cancer Type, Location and Year: blood clots Hx Chemotherapy: No Hx Radiation Therapy: No - Surgical History Surgery Procedure, Year, and Place: - 2006 - Immunization History Date of Tetanus Vaccine: utd Date of Influenza Vaccine: none Infectious Disease History: No Infectious Disease History: Denies: Hx Clostridium Difficile, Hx Hepatitis, Hx Human Immunodeficiency Virus (HIV), Hx of Known/Suspected MRSA, Hx Shingles, Hx Tuberculosis, Traveled Outside the [place] in Last 30 Days - Family History Known Family History: Positive: Diabetes, Other - epilepsy Negative: Respiratory Disease - Social History Occupation: Employed Full-time Lives: With Family Alcohol Use: None Alcohol Amount: On weekends Hx Substance Use: No Substance Use Type: Reports: None Hx Tobacco Use: Yes Smoking Status (MU): Current Some Day Smoker Review of Systems Constitutional: Negative Negative: Fever, Chills, Fatigue, Skin Diaphoresis Negative: Palpitations, Chest Pain Negative: Abdominal Pain, Vomiting, Diarrhea, Nausea Positive: see HPI Negative: Arthralgia, Myalgia Skin: Negative Neurological: Negative All Other Systems Reviewed And Are Negative: Yes Physical Exam - Physical Exam Triage Information Reviewed: Yes Vital Signs Reviewed: Yes Appearance: Positive: Well-Appearing, Well-Nourished Skin: Positive: Warm, Skin Color Reflects Adequate Perfusion Head/Face: Positive: Normal Head/Face Inspection Eyes: Positive: EOMI, Conjunctiva Clear Neck: Positive: Supple, No Lymphadenopathy Respiratory/Lung Sounds: Positive: Clear to Auscultation, Breath Sounds Present Cardiovascular: Positive: RRR, Pulses are Symmetrical in both Upper and Lower Extremities. Negative: Leg Edema Left, Leg Edema Right Abdomen Description: Positive: Nontender, No Organomegaly, Soft Bowel Sounds: Positive: Present Musculoskeletal: Positive: Normal, Strength/ROM Intact Psychiatric: Positive: Affect/Mood Appropriate AVPU Assessment: Alert Diagnostics - Vital Signs Vital Signs Temp Pulse Resp BP Pulse Ox 12/09/18 10:47 98.0 F 71 17 107/57 100 - Laboratory Result Diagrams: 12/09/18 10:59 12/09/18 10:59 Lab Statement: Any lab studies that have been ordered have been reviewed, and results considered in the medical decision making process. Course/Dx - Course Course Of Treatment: During the course treatment, the patient's evaluated for vaginal bleeding. Patient is currently 8 weeks based on LMP. She is also endorsing bilateral cramping. History of ectopic . She had an intrauterine confirmed by ultrasound 2 weeks ago and beta hCG was approximate 60,000 at that time. Today, this has decreased to 21,149. Discussed findings with patient. Patient will follow-up with [facility] in 2-3 days for recheck of hCG. She is DC'd with incomplete . Tylenol given for discomfort. - Differential Diagnosis/HQI/PQRI: Incomplete , Missed , Spontaneous , Threatened - Diagnoses Provider Diagnoses: Incomplete Discharge - Sign-Out/Discharge Documenting (check all that apply): Patient Departure Patient Received Moderate/Deep Sedation with Procedure: No - Discharge Plan Condition: Stable Disposition: HOME Patient Education Materials: Threatened Miscarriage (ED) Referrals: Skylar Jiménez MD [Primary Care Provider] - Additional Instructions: As discussed, please follow-up with your [facility] in 2-3 days for a repeat hCG If you are soaking through more than 1 pad per hour for 3-4 hours, return to the ED Heat pads and Tylenol for cramping - Billing Disposition and Condition Condition: STABLE Disposition: Home
[2018-12-09 11:12] LABS: ABS Basophils 0 10^3/ul (0-0.2); ABS Eosinophils 0.2 10^3/ul (0-0.6); ABS Lymphocytes 1.9 10^3/ul (1.0-4.8); ABS Monocytes 0.5 10^3/ul (0-0.8); ABS Neutrophils 2.5 10^3/ul (1.5-7.7); ABS Nucleated RBC 0 10^3/ul; Eosinophil % 4.1 %; Hematocrit 35 % (33-41); Hemoglobin 11.5 g/dL (12.0-16.0); Lymphocyte % 36.6 %; Mean Corpuscular HGB Conc 33 g/dL (31-36); Mean Corpuscular Hemoglobin 28 pg (27-31); Mean Corpuscular Volume 87 fL (80-97); Mean Platelet Volume 7.7 fL (7.4-10.4); Nucleated Red Blood Cells % 0; Platelet Count 324 10^3/uL (150-450); Red Blood Count 4.07 10^6 /uL (3.70-4.87); Red Cell Distribution Width 13 % (10.5-15); White Blood Count 5.1 10^3/uL (3.5-10.8)
[2018-12-09 11:27] LABS: Activated Partial Thrombo Time 27.7 seconds (26.0-36.3); INR 0.98 (0.77-1.02)
[2018-12-09 11:34] LABS: Albumin 4.1 g/dL (3.2-5.2); Albumin/Globulin Ratio 1.6 (1-3); BUN/Creatinine Ratio 9.6 (8-20); Calcium 8.9 mg/dL (8.6-10.3); EGFR African American 166.4 (>60); EGFR Non-African American 137.5 (>60); Globulin 2.5 g/dL (2-4); Potassium 3.6 mmol/L (3.5-5.0); Total Bilirubin 0.3 mg/dL (0.2-1.0); Total Protein 6.6 g/dL (6.4-8.9)
[2018-12-09] MEDS ORDERED: Acetaminophen TAB* 325 MG PO ONE (11:41)
[2018-12-09 13:17] VITALS: BP 113/53
== END 2018-12-09 13:17 | disposition home or self-care (01) ==
LOC: ED 10:45
DX: O03.4 Incomplete spontaneous abortion without complication (principal); Z86.718 Personal history of other venous thrombosis and embolism; Z79.01 Long term (current) use of anticoagulants; Z88.0 Allergy status to penicillin; Z72.0 Tobacco use
CPT/HCPCS: 36415; 80053; 83605; 84702; 85025; 85610; 85730; 99282; A9270-GY

== ENCOUNTER 2019-09-14 17:39 | Emergency (ER) | payer SELFPAY ==
--- NOTE | 2019-09-14 19:55 | ED ---
Abdominal Pain/Female - HPI Summary HPI Summary: This pt is a 34 Y/O F presenting to [facility] with a CC of sharp abdominal pain that has been present since 09/11/19 that waxes and wanes with a maximum pain of 9/10 in severity. The pain is located on her R suprapubic region. She states that she has been nauseas since the onset but states that she has vomited. She states that she has been having irregular periods for the last couple months. She states that she has been lightheaded in the morning when she wakes up but denies any LOC. She states that she had water discharge earlier this morning. She denies a fever, headache, diarrhea, and urinary symptoms. She states that she has no aggravating or alleviating factors. She states that she has a PMHx of blood clots that had to be surgically removed. She states that she may be and had to take Plan B once in the last couple of months. - History of Current Complaint Chief Complaint: EDAbdPain Stated Complaint: ABD PAIN PER PT Time Seen by Provider: 09/14/19 19:45 Hx Obtained From: Patient Hx Last Menstrual Period: December 19 ?: No - UNK, states that she had to take plan B a couple months ago Onset/Duration: Sudden Onset, Lasting Days - 3, Still Present, Worse Since - today Timing: Intermittent Episode Lasting - states that the pain waxes and wanes, worse is a 9/10 Severity Initially: Moderate Severity Currently: Severe Pain Intensity: 9 Pain Scale Used: 0-10 Numeric Location: Suprapubic - R sided only Radiates: No Character: Sharp Aggravating Factor(s): Nothing Alleviating Factor(s): Nothing Associated Signs and Symptoms: Positive: Negative - headaches, LOC, Vaginal Discharge - states watery discharge, Nausea, Other: - Lightheaded. Negative: Fever, Urinary Symptoms, Vomiting, Diarrhea Allergies/Adverse Reactions: Allergies Allergy/AdvReac Type Severity Reaction Status Date / Time Penicillins Allergy Hives Verified 09/14/19 17:43 Home Medications: Home Medications Rivaroxaban TAB(*) [Xarelto 20 mg] 20 mg PO DAILY 09/14/19 [History Confirmed ] PMH/Surg Hx/FS Hx/Imm Hx Previously Healthy: Yes Endocrine/Hematology History: Reports: Hx Anticoagulant Therapy - group home use , however not currently taking as of 08/01/17 Denies: Hx Diabetes, Hx Thyroid Disease Cardiovascular History: Reports: Hx Deep Vein Thrombosis, Hx Embolism, Other Cardiovascular Problems/Disorders - HEART MURMUR Denies: Hx Hypertension, Hx Pacemaker/ICD Respiratory History: Reports: Hx Asthma, Other Respiratory Problems/Disorders - allergic rhinitis, smoker Denies: Hx Chronic Obstructive Pulmonary Disease (COPD) GI History: Denies: Hx Ulcer History: Denies: Hx Renal Disease Musculoskeletal History: Reports: Other Musculoskeletal History - 2006 (left) leg DVT Neurological History: Reports: 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 Psychiatric History: Reports: Hx Anxiety, Hx Depression - frequent crying, Hx Panic Disorder - PANIC ATTACKS-ANXIETY, Other Psychiatric Issues/Disorders - ETOH hx (3 mixed drinks per day) - Cancer History Cancer Type, Location and Year: blood clots Hx Chemotherapy: No Hx Radiation Therapy: No - Surgical History Surgical History: Yes Surgery Procedure, Year, and Place: - 2006 - Immunization History Date of Tetanus Vaccine: utd Date of Influenza Vaccine: none Immunizations Up to Date: Yes Infectious Disease History: No Infectious Disease History: Denies: Hx Clostridium Difficile, Hx Hepatitis, Hx Human Immunodeficiency Virus (HIV), Hx of Known/Suspected MRSA, Hx Shingles, Hx Tuberculosis, Traveled Outside the [place] in Last 30 Days - Family History Known Family History: Positive: Diabetes, Other - epilepsy Negative: Respiratory Disease - Social History Occupation: Employed Part-time Lives: With Family - son Alcohol Use: Rare Alcohol Amount: On weekends Hx Substance Use: No Substance Use Type: Reports: None Hx Tobacco Use: No Smoking Status (MU): Former Smoker Amount Used/How Often: 2-3 cigarettes per week Have You Smoked in the Last Year: No Review of Systems Positive: Other - lightheadedness. Negative: Fever Positive: Abdominal Pain - urinary symptoms , Nausea. Negative: Vomiting, Diarrhea Genitourinary: Negative, Other - POSITIVE: watery discharge Neurological: Negative - LOC Negative: Headache All Other Systems Reviewed And Are Negative: Yes Physical Exam - Summary Physical Exam Summary: Appearance: Well-appearing, Well-nourished, lying in bed comfortably Skin: Warm, dry, no obvious rash Eyes: sclera anicteric, no conjunctival pallor ENT: mucous membranes moist, pharynx appears normal Neck: Supple, nontender Respiratory: Clear to auscultation, no signs of respiratory distress Cardiovascular: Normal S1, S2. No murmurs. Normal distal pulses in tibial and radial bilaterally. Abdomen: Soft, nontender, normal active bowel sounds present, mild suprapubic and pelvic tenderness without peritoneal signs Musculoskeletal: Normal, Strength/ROM Intact Neurological: A&Ox3, awake and alert, mentation is normal, speech is fluent and appropriate Psychiatric: affect is normal, does not appear anxious or depressed Triage Information Reviewed: Yes Vital Signs On Initial Exam: Initial Vitals Temp Pulse Resp BP Pulse Ox 97.3 F 76 15 82/69 100 09/14/19 17:41 09/14/19 17:41 09/14/19 17:41 09/14/19 17:41 09/14/19 17:41 Vital Signs Reviewed: Yes Procedures - Sedation Patient Received Moderate/Deep Sedation with Procedure: No Diagnostics - Vital Signs Vital Signs Temp Pulse Resp BP Pulse Ox 09/14/19 17:41 97.3 F 76 15 82/69 100 - Laboratory Result Diagrams: 09/14/19 20:36 09/14/19 20:36 Lab Statement: Any lab studies that have been ordered have been reviewed, and results considered in the medical decision making process. - Ultrasound Transvaginal Ultrasound Interpretation Completed By: Radiologist Summary of Ultrasound Findings: Sonographically normal uterus and ovaries. ED physician has reviewed this report. Abdominal Pain Fem Course/Dx - Course Course Of Treatment: This pt is a 34 Y/O F presenting to [facility] with a CC of sharp abdominal pain that has been present since 09/11/19 that waxes and wanes with a maximum pain of 9/10 in severity. The pain is located on her RLQ. She states that she has been nauseas since the onset but states that she has vomited. She states that she has been having irregular periods for the last couple months. She states that she has been lightheaded in the morning when she wakes up but denies any LOC. She denies any fever, headache, diarrhea, and urinary symptoms. She has a PMHx of blood clots and states that she may be . Her PE found that she has mild suprapubic and pelvic tenderness without peritoneal signs. She has abnormal laboratory values in Urine Ketones, Leukocyte Esterase, and Squamous Epith Cells. Her Transvaginal US found the following: Sonographically normal uterus and ovaries. She will be discharged with a Dx of acute pelvic pain. - Diagnoses Provider Diagnoses: Acute pelvic pain Discharge ED - Sign-Out/Discharge Documenting (check all that apply): Patient Departure - discharge - Discharge Plan Condition: Stable Disposition: HOME Patient Education Materials: Pelvic Pain in Women (ED) Referrals: Skylar Jiménez MD [Primary Care Provider] - 3 Days (if not improving) Additional Instructions: The tests we did tonight did not give any indication that your pain reflects a dangerous problem in your pelvis. It is likely a consequence of the menstrual irregularities you have been dealing with for the past few cycles. If so, the pain should get better over the weekend. Certainly I would not expect it to worsen, so if this happens or you develop new symptoms we should see you back to recheck you. - Billing Disposition and Condition Condition: STABLE Disposition: Home - Attestation Statements Document Initiated by Alvin: Yes Documenting Scribe: Luther Gaytan Provider For Whom Alvin is Documenting (Include Credential): Rafiq Galicia MD Scribe Attestation: Luther Lundberg, scribed for Rafiq Galicia MD on 09/15/19 at 1841. Scribe Documentation Reviewed: Yes Provider Attestation: The documentation as recorded by the Luther billy accurately reflects the service I personally performed and the decisions made by , Rafiq Galicia MD Status of Scribe Document: Viewed
[2019-09-14 20:12] LABS: Urine Appearance Cloudy; Urine Bilirubin Negative (Negative); Urine Blood Negative (Negative); Urine Color Yellow; Urine Glucose Negative (Negative); Urine Ketones Trace (Negative); Urine Nitrite Negative (Negative); Urine Protein Negative (Negative); Urine Specific Gravity 1.024 (1.010-1.030); Urine Urobilinogen Negative (Negative)
[2019-09-14 20:15] LABS: Urine Bacteria Absent (Absent); Urine Red Blood Cell Trace(0-2/hpf) (Absent); Urine Squamous Epithelial Cell Present (Absent); Urine White Blood Cell Trace(0-5/hpf) (Absent)
[2019-09-14 20:44] LABS: ABS Basophils 0.1 10^3/ul (0-0.2); ABS Eosinophils 0.1 10^3/ul (0-0.6); ABS Lymphocytes 2.6 10^3/ul (1.0-4.8); ABS Monocytes 0.4 10^3/ul (0-0.8); ABS Neutrophils 3.5 10^3/ul (1.5-7.7); Eosinophil % 1.9 %; Hematocrit 36 % (35-47); Mean Corpuscular HGB Conc 33 g/dL (31-36); Mean Corpuscular Hemoglobin 29 pg (27-31); Mean Corpuscular Volume 87 fL (80-97); Mean Platelet Volume 7.7 fL (7.4-10.4); Nucleated Red Blood Cells % 0.1; Platelet Count 303 10^3/uL (150-450); Red Blood Count 4.19 10^6 /uL (3.70-4.87); Red Cell Distribution Width 14 % (10-15); White Blood Count 6.7 10^3/uL (3.5-10.8)
[2019-09-14 21:02] LABS: ALT 12 U/L (7-52); AST 20 U/L (13-39); Albumin 4.3 g/dL (3.2-5.2); Albumin/Globulin Ratio 1.5 (1-3); Alkaline Phosphatase 73 U/L (34-104); Anion Gap 6 mmol/L (2-11); BUN/Creatinine Ratio 23.1 (8-20); Blood Urea Nitrogen 15 mg/dL (6-24); C Reactive Protein 1.49 mg/L (<8.01); CO2 Carbon Dioxide 30 mmol/L (22-32); Calcium 9.4 mg/dL (8.6-10.3); Chloride 104 mmol/L (101-111); EGFR African American 127.8 (>60); EGFR Non-African American 105.6 (>60); Globulin 2.9 g/dL (2-4); Glucose 88 mg/dL (70-100); Potassium 3.3 mmol/L (3.5-5.0); Sodium 140 mmol/L (135-145); Total Protein 7.2 g/dL (6.4-8.9)
[2019-09-14 21:07] LABS: HCG Pregnancy < 0.60 mIU/mL
[2019-09-14 23:41] VITALS: BP 128/78
== END 2019-09-14 23:40 | disposition home or self-care (01) ==
LOC: ED 17:39
DX: R10.2 Pelvic and perineal pain (principal); F41.9 Anxiety disorder, unspecified; F32.9 Major depressive disorder, single episode, unspecified; Z87.891 Personal history of nicotine dependence; Z88.0 Allergy status to penicillin
CPT/HCPCS: 36415; 76830; 80053; 81003; 81015; 83605; 83690; 84702; 85025; 86140; 87086; 99282